=== PATIENT | female | born 1945 | race Caucasian/White ===

== ENCOUNTER 2020-04-22 11:15 | Emergency (ER) | payer MEDICARE, SELFPAY ==
--- NOTE | ~2020-04-22 | CT_ITS ---
EXAMINATION: CT facial & cervical spine wo DATE: 04/22/2020 14:04 INDICATION: Facial and neck pain after fall TECHNIQUE: Computed tomography (CT) of the maxillofacial region and cervical spine was performed with out intravenous contrast. The dose-length product (DLP) was 493.00 mGy-cm. Automated exposure control and iterative reconstruction technique were employed. COMPARISON: None FINDINGS: MAXILLOFACIAL CT: There is no facial fracture. The orbits are normal. The soft tissues are unremarkable. The paranasal sinuses are well-aerated. CERVICAL SPINE CT: There is no fracture. The odontoid is intact. There is 1 mm of anterolisthesis of C4 on C5 and C5 on C6. Mild loss of intervertebral disc space height is seen at C6-7. The vertebral body heights are nor mal. 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 The prevertebral soft tis sues are normal. IMPRESSION: 1. No facial fracture. 2. Mild cervical spondylosis. Reviewed, dictated and finalized at location A.
--- NOTE | ~2020-04-22 | XR_ITS ---
EXAMINATION: XR chest 1V INDICATION: Pain after fall TECHNIQUE: AP COMPARISON: None available FINDINGS: The lungs are free of acute opacities. There is no pleural effusion or pneumothorax. The ca rdiomediastinal silhouette is normal. The visualized bones and soft tissues are unremarkable. IMPRESSION: 1. No acute cardiopulmonary abnormality. Reviewed, dictated and finalized at location A.
--- NOTE | ~2020-04-22 | XR_ITS ---
EXAMINATION: XR hip RT 2V w AP pelvis INDICATION: Right hip pain TECHNIQUE: AP view of the pelvis and two views of the right hip are obtained. COMPARISON: None available FINDINGS: Bone alignment is normal. There is no fracture. Mild bilateral hip osteoarthritis is presen t. There is moderate to severe spondylosis of the partially imaged lumbar spine. IMPRESSION: 1. No acute osseous abnormality. Reviewed, dictated and finalized at location A.
--- NOTE | ~2020-04-22 | CT_ITS ---
EXAMINATION: CT brain wo con INDICATION: Head injury COMPARISON: None TECHNIQUE: Standard unenhanced head CT. The dose-length product (DLP) was 605.33 mGy-cm. The mA was a djusted according to patient size. Iterative reconstruction technique was employed. FINDINGS: There is no acute intraparenchymal hemorrhage. No evidence of mass lesion. No evidence of a cute infarction. There is mild periventricular and subcortical hypodensity probably related to small vessel ischemic disease. There is mild prominence of the sulci and ventricles related to cerebral atr ophy. Intracranial calcified cerebral atherosclerosis is noted. There are no extra-axial collections. There is no mass effect or midline shift. The orbits and soft tissues are unremarkable. The visuali zed sinuses and mastoid air cells are well aerated. IMPRESSION: 1. No acute intracranial abnormality. 2. Age related findings. Reviewed, dictated and finalized at location A.
[2020-04-22 11:10] VITALS: BP 156/74; PULSE 77; RESP 18; TEMP 36.9; O2SAT 96
--- NOTE | 2020-04-22 12:33 | ECG_ITS ---
Measurements Intervals [place] Rate: 70 P: 34 MO: 204 QRS: 8 QRSD: 86 T: 1 QT: 371 QTc: 401 Interpretive Statements SINUS RHYTHM WITH MARKED SINUS ARRHYTHMIA BORDERLINE AV CONDUCTION DELAY BORDERLINE T WAVE ABNORMALITY- INFERIOR LEADS BASELINE ARTIFACT- I, III, AVL BORDERLINE ECG Electronically Signed On 04-22-2020 16:40:02 CDT by Zachary Liriano D.O.
[2020-04-22 12:46] VITALS: BP 135/67; PULSE 76; RESP 22; O2SAT 97
--- NOTE | 2020-04-22 12:57 | ED.GENADULT ---
HPI - General Adult General Chief complaint: Fall Stated complaint: FALL Time Seen by Provider: 04/22/20 12:12 History of Present Illness HPI narrative: Patient is a 74 y/o female complaining of falling down about 14 steps at her sister's place. She states that she missed a step prior to falling. This occurred 1-2 hours ago. She has some aching headache on right side of her head. She rates her pain as 4/10. She admits hitting her head, but she did not pass out. She also has some neck pain and right hip pain. She sustained laceration to left leg and multiple abrasions. She states that she is up to date on Tetanus shot and her last one was approximately 1 year ago. Related Data Home Medications Medication Instructions Recorded Confirmed Unable to Obtain Home Medications 04/22/20 04/22/20 Allergies Allergy/AdvReac Type Severity Reaction Status Date / Time No Known Allergies Allergy Verified 04/22/20 11:28 Review of Systems Constitutional: Constitutional: Denies chills, Denies fever(s), Reports headache(s) and Denies weakness Eyes: Eyes: Denies blurry vision ENT: Reports headache(s) and Reports neck pain Cardiovascular: Cardiovascular: Denies chest pain and Denies dyspnea Respiratory: Respiratory: Denies cough and Denies dyspnea Gastrointestinal: Gastrointestinal: Denies abdominal pain, Denies diarrhea, Denies nausea and Denies vomiting Genitourinary: Genitourinary: Denies hematuria and Denies dysuria Musculoskeletal: Musculoskeletal: Denies back pain and Reports neck pain Integumentary/Breasts: Skin/Breast: Reports as per HPI and Reports wounds (left leg laceration) Neurologic: Reports headache(s) and Denies weakness [facility] Social History Social History Gender identity (if verbalized by the patient): Female Exam Const: General: no acute distress and well developed Orientation/consciousness: oriented to person, oriented to place, oriented to time and patient oriented x3 HENMT: Head: normocephalic Ears: external ears normal General nose exam: Normal external nose present Eyes: General: appearance normal, both eyes and all related structures Conjunctivae: conjunctivae normal Neck: Neck: normal visual inspection and other (C-colar in place) Chest: Chest palpation & inspection: normal inspection of the chest and no tenderness Resp: Effort & Inspection: normal respiratory effort Auscultation: clear to auscultation bilaterally Cardio: Rate: regular rate Rhythm: regular rhythm GI: GI Palp: No abdominal tenderness and Yes Soft to palpation Skin: General skin exam: normal color and turgor normal Trauma: abrasion (left index finger, left arm) and laceration (12 cm laceration left lower leg) Neuro: General: oriented to person, oriented to place, oriented to time and patient oriented x3 Cranial nerves: Yes CN's II-XII intact bilaterally Cognition (Neuro): normal cognition Speech: normal speech Motor exam (neuro): 5/5 motor strength present throughout Sensory Exam: normal sensation Coordination: [id number] test normal and [id number] test normal Extrem: General: normal to inspection, full ROM and no pedal edema Psych: Appearance: grossly normal Mental Status: mental status grossly normal Affect: normal affect Course Vital Signs Vital signs: Vital Signs Temperature 36.9 C 04/22/20 11:10 Pulse Rate 77 04/22/20 11:10 Respiratory Rate 18 04/22/20 11:10 Blood Pressure 156/74 H 04/22/20 11:10 Pulse Oximetry 96 04/22/20 11:10 Temperature 36.9 C 04/22/20 11:10 Pulse Rate 76 04/22/20 12:46 Respiratory Rate 22 H 04/22/20 12:46 Blood Pressure 135/67 04/22/20 12:46 Pulse Oximetry 97 04/22/20 12:46 Procedures Laceration Laceration 1: Date: 04/22/20 Site: lower extremity (left lower leg) Side (If applicable): left Size (cm): 12 Description: linear Local Anesthetic: jeremy
[2020-04-22 13:22] LABS: Basophils Absolute Auto 0.1 K/mm3 (0.0-0.1); Basophils Percent Auto 0.5 % (0.2-1.2); Eosinophils Absolute Auto 0.3 K/mm3 (0-0.3); Eosinophils Percent Auto 2.8 % (0-4.4); Hematocrit 41.5 % (37.0-47.0); Hemoglobin 13.4 g/dL (12.0-15.0); Immature Granulocyte Absolute 0.08 K/mm3 (0.00-0.031); Immature Granulocyte Percent A 0.8 % (0-0.5); Lymphocytes Absolute Auto 2.26 K/mm3 (0.9-3.2); Lymphocytes Percent Auto 22.8 % (18.3-44.2); Mean Corpuscular HGB Conc 32.3 g/dl (32-36); Mean Corpuscular Hemoglobin 35.4 pg (26-34); Mean Corpuscular Volume 109.5 fl (80-100); Mean Platelet Volume 10.9 fl (7.4-10.4); Monocytes Absolute Auto 0.9 K/mm3 (0.1-0.6); Monocytes Percent Auto 8.7 % (2.6-8.5); Neutrophils Absolute Auto 6.4 K/mm3 (1.3-6.7); Neutrophils Percent Auto 64.4 % (45.5-73.1); Platelet Count Result 207 k/mm3 (150-375); Red Blood Count 3.79 M/mm3 (4.2-5.4); Red Cell Distribution Width 14.2 % (11.5-14.5); White Blood Count 9.9 K/mm3 (4.5-10.0)
[2020-04-22 13:36] LABS: Alanine Aminotransferase 28 U/L (4-35); Albumin Level 3.9 g/dL (3.5-5.1); Alkaline Phosphatase 96 U/L (38-126); Aspartate Amino Transferase 29 U/L (14-36); Bilirubin,Total 0.3 mg/dL (0.2-1.3); Blood Urea Nitrogen 17 mg/dL (7-17); Calcium 9.1 mg/dL (8.4-10.2); Carbon Dioxide 26 mmol/L (22-30); Chloride 106 mmol/L (98-107); Estimated CRCL calculation 82 ml/min; Estimated Glomerular Filt Rate > 60; Glucose 107 mg/dL (65-105); Potassium 4.2 mmol/L (3.4-5.0); Sodium 137 mmol/L (137-145)
[2020-04-22] MEDS: IBUPROFEN 400 MG TABLET 800 MG PO (14:57)
[2020-04-22 15:52] VITALS: BP 131/74; PULSE 88; RESP 20; O2SAT 98
== END 2020-04-22 15:53 | disposition home or self-care (01) ==
PROVIDERS: Emergency Provider Emergency Medicine; PCP Family Medicine
DX: S00.83XA Contusion of other part of head, initial encounter (principal); S81.812A Laceration without foreign body, left lower leg, initial encounter; S60.411A Abrasion of left index finger, initial encounter; S40.812A Abrasion of left upper arm, initial encounter; W10.9XXA Fall (on) (from) unspecified stairs and steps, initial encounter; R94.31 Abnormal electrocardiogram [ECG] [EKG]
CPT/HCPCS: 12034; 36415; 70450; 70486; 71045; 72125; 73502; 80053; 85025; 93005; 99284; A9270

== ENCOUNTER 2020-05-02 13:15 | Outpatient (CLI) | payer MEDICARE, SELFPAY ==
--- NOTE | ~2020-05-02 | DEXA_ITS ---
BMD(1) Young-Adult(2) Age-Matched(3) Region (g/cm2) T-score Z-score WHO Classification L1 1.277 1.1 1.7 Normal L2 1.440 1.9 2.5 Normal L3 1.546 2.6 3.2 Normal L4 1.361 1.1 1.7 Normal L1-L4 (L2) 1.388 1.6 2.2 Normal Trend: L1-L4 (L2) Change vs Change vs Measured Age BMD(1) Baseline Previous Date ([age]) (g/cm2) (%) (%) 05[birth year]02/2020 [age] 1.388 baseline - 1 - Statistically 68% of repeat scans fall within 1SD (+- 0.010 g/cm2 for AP Spine L1-L4 (L2)) 2 - [place] (Combined [place] (ages 20-30) / [place] (ages 20-40)) AP Spine Reference Population (v112) 3 - Matched for Age, Weight (females 25-100 kg), Ethnic 11 - World Health Organization - Definition of Osteoporosis and Osteopenia for Women: Normal = T-score at or above -1.0 SD; Osteopenia = T-score between -1.0 and -2.5 SD; Osteoporosis = T-score at or below -2.5 SD; (WHO definitions only apply when a young healthy Women reference database is used to determine T-scores.) Printed: 05/02/2020 2:00:38 PM (13.60)76:3.00:22.22:27.0 0.00:14.88 0.60x1.05 33.2:%Fat=45.8% 0.00:0.00 0.00:0.00 Filename: [id number] Scan Mode: Thick;OneScan 83.0 uGy GoComm [id number] BMD(1) Young-Adult(2,7) Age-Matched(3) Region (g/cm2) T-score Z-score WHO Classification Neck Left 1.035 0.0 1.1 Normal Right 1.092 0.4 1.5 Normal Mean 1.064 0.2 1.3 Normal Difference 0.057 0.4 0.4 - Total Left 1.176 1.3 2.2 Normal Right 1.196 1.5 2.4 Normal Mean 1.186 1.4 2.3 Normal Difference 0.021 0.2 0.2 - Hip [place] Length Comparison (mm) (Right = 100.9 mm) (Mean = 105.9 mm) (Left = 99.4 mm) Trend: Total Mean Change vs Change vs Measured Age BMD(1) Baseline Previous Date (years) (g/cm2) (%) (%) 05/02/2020 74.8 1.186 baseline - 1 - Statistically 68% of repeat scans fall within 1SD (+- 0.010 g/cm2 for DualFemur Total) 2 - [place] (Combined [place] (ages 20-30) / [place] (ages 20-40)) Femur Reference Population (v112) 3 - Matched for Age, Weight (females 25-100 kg), Ethnic 7 - DualFemur Total T-score difference is 0.2. Asymmetry is None. 11 - World Health Organization - Definition of Osteoporosis and Osteopenia for Women: Normal = T-score at or above -1.0 SD; Osteopenia = T-score between -1.0 and -2.5 SD; Osteoporosis = T-score at or below -2.5 SD; (WHO definitions only apply when a young healthy Women reference database is used to determine T-scores.) Printed: 05/02/2020 2:00:39 PM (13.60); Filename: [id number]; Right Femur; 30.3:%Fat=48.7%; Neck Angle (deg)= 69; Scan Mode: Thick 83.0 uGy; Left Femur; 29.7:%Fat=48.2%; Neck Angle (deg)= 72; Scan Mode: Thick 83.0 uGy GoComm [id number] Dear Rodrigo Farrar, Your patient Annalee Camarena completed a BMD test on 05/02/2020 using the GoComm DXA System (analysis version: 13.60) manufactured by [facility]. The following summarizes the results of our evaluation. PATIENT BIOGRAPHICAL: Name: Annalee Camarena Date: 1945 Height: 63.0 in. Gender: Female
== END 2020-05-02 13:16 | disposition home or self-care (01) ==
LOC: CHSIMG 13:17
PROVIDERS: PCP Family Medicine; Visit Provider Family Medicine
DX: Z78.0 Asymptomatic menopausal state (principal)
CPT/HCPCS: 77080

== ENCOUNTER 2024-12-06 12:34 | Outpatient (CLI) | payer MEDICARE, SELFPAY ==
--- NOTE | ~2024-12-06 | DEXA_ITS ---
Bone Density Report Name: GRISELDA PARKINSON Age: 79 Sex: Female Ethnicity: White Date of : 1945 Indication: postmenopausal; screening for osteoporosis; asthma or emphysema; hysterectomy; Referring Provider: Kathy Mitchell Study: Bone densitometry was performed. Exam Date: December 06, 2024 Accession number: [id number] Bone Density: Region BMD T-score Z-score Classification AP Spine(L1-L4) 1.289 2.2 4.9 Normal Femoral Neck (Left) 0.883 0.3 2.6 Normal Total Hip (Left) 1.076 1.1 3.1 Normal World Health Organization criteria for BMD impression classify patients as: Normal (T-score at or above -1.0), Osteopenia (T-score between -1.0 and -2.5), or Osteoporosis (T-score at or below -2.5). Clinical Information Provided by Patient: Has used the following medications: Vitamin D, Calcium, Celebrex Has the following medical conditions: Asthma or Emphysema, Hysterectomy Patient maximum height was 63.5 Menopause Age: 50 No regular weight bearing exercise Drinks caffeinated beverages Onset of menses at age 13 Number of children 2 Impression: The patient has normal bone mass. Discussion: LOW RISK OF FRACTURE; BONE DENSITY IS WELL ABOVE THE MINIMUM DESIRABLE LEVEL AND ABOVE AVERAGE FOR AGE AND SEX AT ALL SKELETAL SITES TESTED. This person's bone density is above expected limits for age and sex. This is rarely clinically significant, but should be pursued if there are significant musculoskeletal complaints. The patient should follow a healthful lifestyle (good nutrition with adequate calcium and vitamin D, and appropriate weight-bearing exercise). Follow-Up: Consider repeating this study in 5 years or sooner if there is some new clinical indication. Reported by: AURA on 12/06/2024 1:05:00 PM. Reviewed, dictated and finalized at location A.
--- OUTSIDE RECORDS SUMMARY | 2024-12-06 13:10 | XMS_ITS | Data Portability ---
Author Organization ANNIE - Robert Jonas- O-Zhaira Address [facility] [place] [address] [address] Care Team Providers Care Truck Rental Clerk Name Role Phone JAYSON ELIAS Primary Care Provider Assessment Encounter Date Assessment Date Assessment LastModified by Organization Details LastModified Time 09/16/2022 09/16/2022 Pain diary given. [email or web address] Not availa ble 09/16/2022 10:44:17 02/26/2023 02/26/2023 Assessment left wrist pain secondary osteoarthritis Plan after discussing risk of injection such as infection she requested and received a dexamethasone lidocaine injection left thumb CMC joint she tolerated this well. She will continue activity as tolerated follow-up as needed. I offered a cool comfort splint but she was not interested Not available 02/26/2023 12:31:03 Plan of Treatment Reminders Order Date Submit Date Provider Last Modified By Organization Details Last Modified Time Details Appointments None recorded. Lab None recorded. Referral None recorded. Procedures carpometaca rpal injection (PROC) - 02.25.22 DR BLACK LEFT THUMB CMC INJ 2021 022 [email or web address] Not available 09:11:22 Surgeries None recorded. Imaging XR, knee, 3 view 2021 022 [email or web address] [facility] (Image Order), [facility] [place], [address], 15:22:06 XR, wrist, 3 or more view 2022 023 [email or web address] [facility] (Image Order), [facility] [place], [address], 3 13:06:24 Medication Orders tramadol 50 mg tablet 2021 022 RONAN [id number], [address] [place], [id number], 13:02:17 dexamethaso ne sodium phosphate 10 mg/mL injection solution 2022 023 [id number], [address] [place], [id number], 12:47:33 Patient TargetsNo targets recorded. Patient Instructions Encounter Date Encounter Id Patient Instructions Last Modified By Organization Details Last Modified Time 02/11/2022 [id number] osteoarthritis: care instructions Not available 02/11/2022 20:41:18 02/25/2022 [id number] osteoarthritis: care instructions Not available 02/26/2022 09:04:24 02/26/2023 [id number] The patient's diagnosis was discussed using layman's terms. The patient had the opportunity to ask questions and all of these questions were answered to the best of my ability. We discussed treatment options. The patient has been informed that if any questions arise after today, they are to call the office for another appointment, or leave a message for us to return a call. This note was created using voice recognition software and inadvertent typographical errors, word omissions or word substitutions may exist. Occasionally, this may alter the intended meaning of the note. For example, is related can be substituted for isn't related by the software. Not available 02/26/2023 12:31:06 Reason for Referral None Reported. Results Created Date Observation Date Name Description Value Unit Range Abnormal Flag Note LastModifiedBy Organization Detail LastModifiedTime 01/22/2001/21/2022 XR, femur No observ ation record ed. INTERFACE [facility] (Image Order) [address] [place], [address], 01/21/2022 12:59:50 01/31/20 22 01/30/2022 MRI left hip No observ ation record ed. INTERFACE [facility] (Image Order) [address] , [place], [place], [address], 01/30/2022 14:53:03 02/01/20 22 01/30/2022 [facility]-rep ort MR hip left w/o cm EXAMIN ATION: MRI LEFT HIP WITHOU T CONTRA ST, 022 HISTOR Y: stiffn ess of joint of left hip COMPAR JAZMIN: No prior imagin g availa ble for direct compar jazmin. 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 No acute fractu re. Sacroi liac joints : Mild bilate ral osteoa rthrit is. No eviden ce of effusi on. Pubic symphy sis: Mild osteoa rthrit is with small joint effusi on. Hips: Modera te volume fluid surrou nding the right total hip arthro plasty likely repres ents expect ed degree of postop erativ e fluid, althou gh techni syl steril ity indete rminat e by imagin g. If there is concer n for infect ion, arthro centes is with labora tory analys is could furthe r evalua te. Modera te left hip osteoa rthrit is with a small left hip joint effusi on. Left acetab ular labrum : Degene rative frayin g of the left acetab ular labrum withou t discre te tear or. Labral cyst on this nonart hrogra m exam. Examin ation not tailor ed to evalua te the contra latera l acetab ular labrum . Hamstr ings origin s: Left greate r than right partia l tears with modera te tendin osis. Gluteu s minimu s and gluteu s medius tendon s: Partia l tear of left gluteu s minimu s and gluteu s medius with modera te tendin osis and mild trocha nteric bursit is. Limite d evalua tion on the right. Iliops oas tendon s: Modera te tendin osis and bursit is of the left iliops oas tendon . Suspec t partia l tear at the insert ion on the lesser trocha nter. Limite d evalua tion of the right. Soft tissue s: Coloni c divert iculos is. No eviden ce of intrap elvic free fluid. IMPRES YESENIA: 1. Modera te tendin osis and bursit is of the left iliops oas tendon . Suspec t partia l tear at the insert ion on the lesser trocha nter. 2. Partia l tear of left gluteu s minimu s and gluteu s medius with modera te tendin osis and mild trocha nteric bursit is. 3. Left greate r than right partia l tears of the hamstr ings origin s with modera te tendin osis. 4. Modera te left hip osteoa rthrit is with a small left hip joint effusi on and degene rative frayin g of the left acetab ular labrum . 5. No acute fractu re. Electr onical ly Signed By: Robert Cobian at: 022 12:48 EDT [email or web address] [employer] [address], [place], [address], 02/12/2022 10:06:49 02/27/20 22 02/11/2022 unk No observ ation record ed. INTERFACE [facility] (Image Order) [facility] [place], [address], 02/26/2022 06:06:03 02/27/20 22 02/25/2022 unk No observ ation record ed. INTERFACE [facility] [place], [address], 02/26/2022 06:28:58 09/16/20 22 09/16/2022 knee lt No observ ation record ed. INTERFACE [facility] [place], [address], 09/16/2022 11:58:46 Result Notes None recorded. Problems Name Problem SNOMED Code Status Onset Date Resolution Date Notes Provider Name and Address Organization Details Recorded Time Pain in both feet 494162078396 30154 Active 2017 Celestina Landers null, [place] - [facility] 8 14:32:16 Osteoarth ritis of midfoot 167190827 Active 2017 Son Camp null, [place] - [facility] 8 15:39:38 Pain in right hip joint 939950591341 102 Active 2020 Laila Esqueda null, [place] - [facility] 1 18:52:51 Hip pain 15905905 Active 2020 Ruma Flores null, [place] - [facility] 1 09:42:22 Body mass index 40+ - severely obese 498542852 Active 2020 Jose Luis Mullne MD [address] [place], [address], [place] - [facility] 1 10:34:20 Acquired unequal limb length 135256612954 100 Active 2020 Jose Luis Mullen MD [address] [facility] [place], [address], [place] [facility] 1 10:34:22 Osteoarth ritis of right hip joint 249213688128 107 Active 2020 Jose Luis Mullen MD [address] [facility] [place], [address], [place] - [facility] 1 10:34:24 Osteonecr osis of head of femur 780804071 Active 2020 Jose Luis Mullen MD [address] [place], [address], [place] - [facility] 1 10:34:29 Lumbar spondylos is 269809521 Active 2020 Jose Luis Mullen MD [address] [facility] [place], [address], [place] [facility] 1 10:42:25 Neck pain 09392408 Active 2020 Gila Bray null, [place] - [facility] 1 15:05:54 Pain of left thigh 338079728901 105 Active 2021 Trudi Landry null, [place] - [facility] 2 12:44:50 Pain of left hip joint 255985681315 100 Active 2021 Elias Nguyen null, [place] - [facility] 2 13:49:26 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 82497346 Active 2021 Kishore Horan null, [place] - [facility] 2 15:34:12 Osteoarth ritis of left hip joint 445169911977 108 Active 2021 Kishore Horan null, [place] - [facility] 2 15:34:13 Pain of left wrist 536085656090 102 Active 2021 Son Black MD [address] [facility] [place], [address], [place] [facility] 2 08:17:20 Pain of left knee region 332617072116 109 Active 2021 Trudi Landry null, [place] - [facility] 2 11:50:03 Pes anserinus tendiniti s 77047391 Active 2021 DAVID Booth [address] [place], [address], [place] [facility] 2 15:27:54 Pain in left thumb 291304093576 9100 Active 2022 Tabitha Garduno null, [place] - [facility] 3 11:34:09 Severe obesity 628648127159 04 Active 2022 Joshua Bonilla MD [address] [place], [address], [place] [facility] 3 12:26:42 Osteoarth ritis of first carpometa carpal joint of left hand 735301395759 103 Active 2022 Joshua Bonilla MD [address] [place], [address], [place] [facility] 3 12:26:59 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 Procedures Surgical History Date Name Laterality Status Provider Name and Address Organization Details Recorded Time 12/11/19 62286: Therapeutic Exercise cancelled Jay Yates, DIRECTOR OF TEACHER EDUCATION [address] [place], [address], [place] [facility] 12/10/2021 08:16:16 12/11/19 22 86141: Therapeutic Activities cancelled Jay Yates, DIRECTOR OF TEACHER EDUCATION [address] [place], [address], [place] [facility] 12/10/2021 08:16:16 12/09/19 53466: Therapeutic Exercise completed Jay Yates, DIRECTOR OF TEACHER EDUCATION [address] [place], [address], [place] [facility] 12/06/2021 08:09:09 12/09/19 22 85464: Therapeutic Activities completed Jay Yates PTA [address] [place], [address], [place] [facility] 12/06/2021 08:09:09 12/06/19 39955: Therapeutic Exercise completed Jay Yates PTA [address] [place], [address], [place] - [facility] 12/05/2021 09:05:56 12/06/19 94601: Therapeutic Activities completed Jay Yates PTA [address] [place], [address], [place] [facility] 12/05/2021 09:05:56 12/04/19 80100: Therapeutic Exercise completed C-HornbyD_PT A [address] [place], [address], [place] [facility] 11/30/2021 21:40:04 12/04/19 22 21215: Gait Training completed C-HornbyD_PT A [address] [place], [address], [place] [facility] 12/05/2021 07:49:24 12/04/19 22 26036: Manual Therapy completed C-HornbyD_PT A [address] [place], [address], [place] [facility] 11/30/2021 21:40:04 12/04/19 22 11205: Therapeutic Activities completed C-HornbyD_PT A [address] [place], [address], [place] [facility] 11/30/2021 21:40:04 11/29/19 22 64889: Therapeutic Exercise completed C-HornbyD_PT A [address] [place], [address], [place] [facility] 11/29/2021 16:09:21 11/29/19 14243: Manual Therapy completed C-HornbyD_PT A [address] [place], [address], [place] [facility] 11/30/2021 20:20:16 11/29/19 91688: Therapeutic Activities completed C-HornbyD_PT A [address] [place], [address], [place] - [facility] 11/29/2021 16:09:21 11/27/19 93678: Therapeutic Exercise completed Jay Yates, JAZZ [address] [place], [address], [place] - [facility] 11/27/2021 08:29:37 11/27/19 65357: Therapeutic Activities completed Jay Yates, JAZZ [address] [place], [address], [place] - [facility] 11/27/2021 08:29:37 11/22/19 22 47068: Therapeutic Exercise completed Jay Yates, DIRECTOR OF TEACHER EDUCATION [address] [place], [address], [place] [facility] 11/21/2021 08:19:07 11/22/19 73825: Therapeutic Activities completed Jay Yates, DIRECTOR OF TEACHER EDUCATION [address] [place], [address], [place] [facility] 11/21/2021 08:19:07 11/20/19 22 01513: Therapeutic Exercise completed Jay Yates, JAZZ [address] [place], [address], [place] [facility] 11/19/2021 08:53:21 11/20/19 22 44656: Therapeutic Activities completed Jay Yates PTA [address] [place], [address], [place] [facility] 11/19/2021 08:53:21 11/18/19 22 73090: Therapeutic Exercise completed Jay Yates PTA [address] [place], [address], [place] - [facility] 11/15/2021 13:57:10 11/18/19 22 60930: Therapeutic Activities completed Jay Yates PTA [address] [place], [address], [place] [facility] 11/15/2021 13:57:10 11/14/19 22 79141: Therapeutic Exercise completed SHARYN Mistry [address] [place], [address], [place] - [facility] 11/14/2021 11:39:11 11/14/19 22 27437: Neuromuscular Re-Education completed SHARYN Mistry [address] [place], [address], [place] [facility] 11/15/2021 08:05:23 11/14/19 22 28321: Therapeutic Activities completed SHARYN Mistry [address] [place], [address], [facility] 11/14/2021 11:39:11 11/12/19 22 61580: Therapeutic Exercise completed Jay Yates PTA [address] [place], [address], [place] [facility] 11/12/2021 11:58:37 11/12/19 22 98369: Therapeutic Activities completed Jay Yates PTA [address] [place], [address], [place] [facility] 11/12/2021 11:58:34 11/07/20 21 90808: Therapeutic Exercise completed Jolie Song [place] - [facility] 11/07/2021 13:22:01 12/30/20 21 67044: Gait Training completed [facility]ie [facility] 11/07/2021 13:22:01 11/07/20 78994: [facility] 11/07/2021 13:22:01 11/05/20 20234: Therapeutic Exercise completed Jolie [facility] 11/05/2021 09:44:10 11/05/20 67685: Gait Training completed Jolie [facility] 11/05/2021 13:13:47 11/05/20 33769: Therapeutic Activities completed Jolie [facility] 11/05/2021 09:44:10 10/30/20 85588: Therapeutic Exercise completed SHARYN Mistry [address] [facility] [place], [address], [facility] 10/31/2021 07:51:59 10/30/20 21062: Therapeutic Activities completed SHARYN Mistry [address] [facility] [place], [address], [facility] 10/31/2021 07:51:59 10/09/20 61649: Therapeutic Exercise completed SHARYN Mistry [address] [facility] [place], [address] [place] [address], [facility] 10/09/2021 13:23:10 10/09/20 71169: Therapeutic Activities completed SHARYN Mistry [address] [facility] [place], [address], [facility] 10/09/2021 13:23:10 10/08/20 27012: Therapeutic Exercise completed Jolie [facility] 10/08/2021 13:26:31 10/08/20 03536: Manual Therapy completed Jolie [facility] 10/08/2021 14:56:37 10/08/20 96238: Therapeutic Activities completed Jolie [facility] 10/08/2021 13:26:31 10/07/20 25497: Therapeutic Exercise completed Jay Yates PTA [address] [place], [address], [place] [facility] 10/07/2021 15:15:32 10/07/20 21 56470: Therapeutic Activities completed Jay Yates PTA [address] [place], [address], [facility] [place] [facility] 10/07/2021 15:15:35 09/30/20 21 79496: Therapeutic Exercise cancelled SHARYN Mistry [address] [place], [address], [facility] [place] [facility] 09/26/2021 15:34:11 09/23/20 02492 PT eval ? low complexity completed SHARYN Mistry [address] [place], [address], [facility] 09/23/2021 15:44:35 09/23/20 21 02042: Therapeutic Exercise completed SHARYN Mistry [address] [place], [address], [facility] 09/25/2021 10:40:59 09/23/20 21 68118: Therapeutic Activities completed SHARYN Mistry [address] [place], [address], [facility] 09/25/2021 10:41:30 09/16/20 21 [id number]: Gait Training completed SHARYN Mistry [address] [place], [address], [facility] 09/16/2021 14:15:20 09/16/20 21 50246 PT eval ? low complexity completed SHARYN Mistry [address] [place], [address], [facility] 09/16/2021 12:11:28 09/16/20 21 93456: Therapeutic Activities completed SHARYN Mistry [address] [place], [address], [facility] 09/16/2021 14:16:11 06/09/20 17 Most Recent Mammogram completed Celestina Bobak [place] - [facility] 06/02/2018 14:46:09 05/09/20 17 Most Recent Bone Density completed Celestina Landers [place] - [facility] 06/02/2018 14:46:04 Imaging Results Imaging Date Name Status LastModified by Organiz ation Details LastModified Time 01/21/2022 XR, femur completed INTERFACE [facility] (I mage Order) [facility] [place], [address], 01/21/2022 12:59:50 01/30/2022 MRI left hip completed INTERFACE [facility] (Image Order) [facility] [place], [address], 01/30/2022 14:53:03 01/30/2022 [facility] -report MR hip left w/o cm completed [email or web address] [employer] [address], [place], [address], 02/12/2022 10:06:49 02/11/2022 unk completed INTERFACE [facility] (I mage Order) [facility] [place], [address], 02/26/2022 06:06:03 02/25/2022 unk completed INTERFACE [facility] (I mage Order) [facility] [place], [address], 02/26/2022 06:28:58 09/16/2022 knee lt completed INTERFACE [facility] (I m[facility] Order) [facility] [place], [address], 09/16/2022 11:58:46 Procedure Notes None recorded. Medical Equipment None Reported. Allergies No known drug allergies Medications Name Sig Start Date Stop Date Status Note LastModified by Organization Details LastModified Time Prescript ion - Renewal 11/21 completed compound ing RX Not Available Not Available Not Available Prescript ion - New 11/21 completed compound ing RX Not Available Not Available Not Available latanopro st 0.005 % eye drops INSTILL 1 DROP IN BOTH EYES AT BEDTIME 11/05 completed Not Available Not Available Not Available metformin 500 mg tablet Take 1 tablet twice a day by oral route. 09/16 completed Not Available Not Available Not Available prednison e 10 mg tablet 11/05 completed Not Available Not Available Not Available clindamyc in HCl 300 mg capsule TK 1 C PO Q 8 H 11/19 completed Not Available Not Available Not Available atorvasta tin 10 mg tablet 1 po qd active Not Available Not Available Not Available azithromy ewelina 250 mg tablet TAKE 2 TABLETS BY MOUTH FOR 1 DAY THEN TAKE 1 TABLET BY MOUTH DAILY FOR 4 DAYS 01/21 completed Not Available Not Available Not Available hydrocodo ne 5 mg-acetam inophen 325 mg tablet Take 1 tablet every 6 hours by oral route as needed for 5 days. 2021 active Not Available Not Available Not Avai lable tretinoin 0.025 % topical cream SOFI EXT AA D 11/21 completed Not Available Not Available Not Available meloxicam 15 mg tablet 1 po qd 07/26 completed Not Available Not Available Not Available phentermi ne 15 mg capsule 07/26 completed Not Available Not Available Not Available potassium chloride ER 10 mEq tablet,ex tended release Take 3 tablets every day by oral route as directed . active Not Available Not Available No t Available phentermi ne 37.5 mg tablet Take 1 tablet every day by oral route as directed for 33 days. 11/21 completed Not Available Not Available Not Available acetamino phen 300 mg-codein e 30 mg tablet TAKE 1 T PO Q 4 HOURS PRN FOR PAIN 01/21 completed Not Available Not Available Not Available valacyclo vir 500 mg tablet take as needed as directed 11/21 completed Not Available Not Available Not Available sulfameth oxazole 800 mg-trimet hoprim 160 mg tablet 06/02 completed Not Available Not Available Not Available peg-elect rolyte solution 420 gram oral solution MIX AND DRINK UTD 11/21 completed Not Available Not Available Not Available tramadol 50 mg tablet Take 1 tablet every 6 hours by oral route as needed for 7 days. 2021 active Not Available Not Available Not Avai lable phentermi ne 30 mg capsule 07/26 completed Not Available Not Available Not Available lidocaine -prilocai ne 2.5 %-2.5 % topical cream 11/21 completed Not Available Not Available Not Available hydrocodo ne 7.5 mg-acetam inophen 325 mg tablet TAKE 1 TABLET BY MOUTH THREE TIMES DAILY 11/05 completed Not Available Not Available Not Available cephalexi n 500 mg capsule TK 1 C PO TID 11/19 completed Not Available Not Available Not Available metoprolo l tartrate 50 mg tablet Take 0.5 tablets twice a day by oral route as directed . 09/23 completed ON HOLD due to low BP after MARCY Not Available Not Available Not Available gabapenti n 300 mg capsule TAKE 2 CAPSULES BY MOUTH TWICE DAILY active Not Available Not Available No t Available diclofena c sodium 75 mg tablet,de layed release TAKE 1 TABLET BY MOUTH TWICE DAILY WITH MEALS 11/21 completed Not Available Not Available Not Available hydroxyzi ne HCl 25 mg tablet TK 1 T PO TID PRN FOR HIVES 11/21 completed Not Available Not Available Not Available mupirocin 2 % topical ointment 11/05 completed Not Available Not Available Not Available furosemid e 20 mg tablet 1 po qd active Not Available Not Available Not Available dexametha sone sodium phosphate 4 mg/mL injection solution Take 4 mg by injectio n route. 11/19 completed Not Available Not Available Not Available Cheratuss in AC 10 mg-100 mg/5 mL oral liquid 05/25 completed Not Available Not Available Not Available levofloxa ewelina 500 mg tablet 11/21 completed Not Available Not Available Not Available methylpre dnisolone 4 mg tablets in a dose pack FOLLOW PACKAGE DIRECTIO NS 11/05 completed Not Available Not Available Not Available albuterol sulfate HFA 90 mcg/actua tion aerosol inhaler INHALE 1 TO 2 PUFFS Q 4 TO 6 HOURS PRN AND UTD 11/21 completed Not Available Not Available Not Available Vitamin D2 1,250 mcg (50,000 unit) capsule Take by oral route as directed for 42 days. active Not Available Not Available No t Available celecoxib 100 mg capsule TAKE 1 CAPSULE BY MOUTH EVERY 12 HOURS WITH MEALS NEEDED FOR PAIN AND INFLAMMA TION active Not Available Not Available No t Available clobetaso l 0.05 % scalp solution 11/21 completed Not Available Not Available Not Available dexametha sone sodium phosphate 10 mg/mL injection solution Take 5 mg by injectio n route. 2022 active Not Available Not Available Not Avai lable amoxicill in 875 mg-potass ium clavulana te 125 mg tablet 11/21 completed Not Available Not Available Not Available oxycodone 5 mg tablet Take by oral route for 4 days. 01/21 completed Not Available Not Available Not Available Multivita min 50 Plus tablet Take 1 tablet every day by oral route as directed . active Not Available Not Available No t Available lutein 20 mg capsule Take 1 capsule every day by oral route. 01/21 completed Not Available Not Available Not Available Nyamyc 100,000 unit/gram topical powder as directed 11/21 completed Not Available Not Available Not Available Boostrix Tdap 2.5 Lf unit-8 mcg-5 Lf/0.5 mL intramusc ular syringe INJET INTRAMUS CULARLY DIRECTED 11/21 completed Not Available Not Available Not Available Vitamin C 1 po daily active Not Available Not Available No t Available vitamin E 1 po daily active Not Available Not Available No t Available zinc 1 po daily 09/16 completed Not Available Not Available Not Available ferrous sulfate take 1 tablet daily as directed active Not Available Not Available No t Available biotin 1 po daily active Not Available Not Available No t Available Acid Controlle r 20 mg tablet Take 1 tablet every day by oral route. active Not Available Not Available No t Available Floranex 1 million cell tablet TK 1 T PO DAILY 11/21 completed Not Available Not Available Not Available Lumigan 0.01 % eye drops active Not Available Not Available No t Available Eye Vitamin and Minerals take 1 tablet everyday as directed active Not Available Not Available No t Available metoprolo l succinate ER 100 mg capsule sprinkle, ext. release 24 hr Take 1 capsule every day by oral route. active Not Available Not Available No t Available Vitals Date Recorded Body height Provider Name an d Address Organization Details Last Updated DateTime 02/11/2022 156.21 cm Perez Vergara [facility] 2021 12:57:28 Date Recorded Body mass index (BMI) Provider Name and Address Organization Details Last Updated DateTime 02/11/2022 47 kg/m2 Perez Vergara [facility] 2021 12:57:36 Date Recorded Body weight Provider Name an d Address Organization Details Last Updated DateTime 02/11/2022 857878.87 g Perez Vergara [place] [facility] 02/11 12:57:37 Date Recorded Respiratory rate Provider Name a nd Address Organization Details Last Updated DateTime 02/11/2022 18 /min Perez [place]ergara [place] [facility] 2021 12:57:52 Date Recorded Heart rate Provider Name an d Address Organization Details Last Updated DateTime 02/11/2022 66 /min Perez Vergara [place] [facility] 2021 13:14:04 Date Recorded Oxygen saturation Oxygen saturation in Arterial blood by Pulse oximetry Provider Name and Address Organization Details Last Updated DateTime 02/11/2022 98 % 98 % Perez Vergara [place] [facility] 02/11/2022 13:14:08 Date Recorded Pain severity - 0-10 verbal numeric rating [Score] - Reported Provider Name and Address Organization Details Last Updated DateTime 02/11/2022 0 Perez Vergara [place] [facility] 2021 13:14:12 Date Recorded Body height Provider Name an d Address Organization Details Last Updated DateTime 02/25/2022 156.21 cm Perez [place]ergara [place] [facility] 2021 12:59:55 Date Recorded Body mass index (BMI) Body weight Provider Name and Address Organization Details Last Updated DateTime 02/25/2022 47 kg/m2 374952.87 g Perez [facility]ergara [place] [facility] 02/25/2022 13:00:06 Date Recorded Respiratory rate Provider Name a nd Address Organization Details Last Updated DateTime 02/25/2022 18 /min Perez Vergara [place] [facility] 2021 13:00:16 Date Recorded Heart rate Provider Name an d Address Organization Details Last Updated DateTime 02/25/2022 76 /min Perez [place]ergara [place] [facility] 2021 13:10:19 Date Recorded Oxygen saturation Oxygen saturation in Arterial blood by Pulse oximetry Provider Name and Address Organization Details Last Updated DateTime 02/25/2022 99 % 99 % Perez Vergara [place] [facility] 02/25/2022 13:10:26 Date Recorded Pain severity - 0-10 verbal numeric rating [Score] - Reported Provider Name and Address Organization Details Last Updated DateTime 02/25/2022 5 Perez [place]ergara [place] [facility] 2021 13:10:31 Date Recorded Body height Provider Name an d Address Organization Details Last Updated DateTime 09/16/2022 156.21 cm Felicity Lopez [place] [facility] 06/2022 10:39:02 Date Recorded Body mass index (BMI) Body weight Provider Name and Address Organization Details Last Updated DateTime 09/16/2022 48.3 kg/m2 490767.02 g Felicity Lopez [place] [facility] 09/16/2022 10:39:08 Date Recorded Heart rate Provider Name an d Address Organization Details Last Updated DateTime 09/16/2022 83 /min Felicity Lopez [place] [facility] 06/2022 10:39:24 Date Recorded Oxygen saturation Oxygen saturation in Arterial blood by Pulse oximetry Provider Name and Address Organization Details Last Updated DateTime 09/16/2022 96 % 96 % Felicity Lopez [place] [facility] 09/16/2022 10:39:29 Date Recorded Respiratory rate Provider Name a nd Address Organization Details Last Updated DateTime 09/16/2022 16 /min Felicityfestus Lopez [place] [facility] 06/2022 10:39:31 Date Recorded Pain severity - 0-10 verbal numeric rating [Score] - Reported Provider Name and Address Organization Details Last Updated DateTime 09/16/2022 7 Felicityfestus Lopez [place] [facility] 06/2022 10:39:38 Date Recorded Body height Provider Name an d Address Organization Details Last Updated DateTime 09/16/2022 156.21 cm Trudi Landry [place] [facility] 2021 11:50:35 Date Recorded Body mass index (BMI) Body weight Provider Name and Address Organization Details Last Updated DateTime 09/16/2022 48.3 kg/m2 838571.02 g Trudi Frantz [place] [facility] 09/16/2022 11:50:39 Date Recorded Pain severity - 0-10 verbal numeric rating [Score] - Reported Provider Name and Address Organization Details Last Updated DateTime 09/16/2022 9 Trudi Landry [place] [facility] 2021 11:51:02 Date Recorded Body height Provider Name an d Address Organization Details Last Updated DateTime 02/26/2023 156.21 cm [facility]a [facility] 02/26 11:33:22 Date Recorded Body mass index (BMI) Body weight Provider Name and Address Organization Details Last Updated DateTime 02/26/2023 48.3 kg/m2 689127.02 g Tabitha [facility] 02/26/2023 11:33:36 Date Recorded Pain severity - 0-10 verbal numeric rating [Score] - Reported Provider Name and Address Organization Details Last Updated DateTime 02/26/2023 9 Tabitha Garduno [place] [facility] 02/26 11:33:42 Date Recorded Systolic blood pressure Diastolic blood pressure Provider Name and Address Organization Details Last Updated DateTime 02/11/2022 124 mm[Hg] 76 mm[Hg] Perez Vergara [place] [facility] 02/11/2022 13:14:01 Date Recorded Systolic blood pressure Diastolic blood pressure Provider Name and Address Organization Details Last Updated DateTime 02/25/2022 134 mm[Hg] 64 mm[Hg] Perez Vergara [place] [facility] 02/25/2022 13:09:19 Date Recorded Systolic blood pressure Diastolic blood pressure Provider Name and Address Organization Details Last Updated DateTime 09/16/2022 144 mm[Hg] 75 mm[Hg] Felicity Lopez [facility] 09/16/2022 10:39:16 Social History Question Answer Notes LastModified by Organizat ion Details LastModified Time Tobacco Smoking Status Never Smoker Celestina Anshul morales, [facility] 06/02/2018 14:41:47 Do You Have An Advance Directive? Yes Information not available 06/02/2018 What Is Your Level Of Alcohol Consumption? Occasional Information not available 06/02/2018 Are You Blind Or Do You Have Difficulty Seeing? No Information not available 07/13/2021 How Much Tobacco Do You Chew? None Information not available 06/02/2018 Are You Currently Employed? No Information not available 06/02/2018 Are You Deaf Or Do You Have Serious Difficulty Hearing? No Information not available 07/13/2021 Diabetes No Information no t available 06/02/2018 Drugs Abused Denies Information not available 06/02/2018 What Is Your Occupation? Retired Teacher Information not available 06/02/2018 Which Of Your Hands Is Dominant? Right Information not available 06/02/2018 Hobbies/Activitie s Gardening, Motorcycles, Travel Information not available 06/02/2018 Legally Blind In One Or Both Eyes? No Information no t available 06/02/2018 Live Alone Or With Others? Alone Information not available 06/02/2018 Do You Have A Medical Power Of Dry Cure Worker? Yes Information not available 06/02/2018 What Was The Date Of Your Most Recent Tobacco Screening? 09/16/2022 [email or web address] Information not available 09/16/2022 How Much Tobacco Do You Smoke? No Information not available 06/02/2018 Do You Use Any Illicit Or Recreational Drugs? No [email or web address] Information not available 01/21/2022 Work Related Injury? No Information not available 06/02/2018 Do You Or Have You Ever Used Any Other Forms Of Tobacco Or Nicotine? No [email or web address] Information not available 09/16/2022 Sex: Unknown Functional Status Question Answer Note LastModified by Organizat ion Details LastModified Time Do you have difficulty walking or climbing stairs? Yes Information not available 07/13/2021 Do you have difficulty doing errands alone? No Information not available 07/13/2021 Are you able to care for yourself? Yes Information not available 06/02/2018 Do you have difficulty dressing or bathing? No Information not available 07/13/2021 What is your exercise level? Occasional Information not available 06/02/2018 Mental Status Question Answer Note LastModified by Organization D etails LastModified Time Do you have difficulty concentrating, remembering or making decisions? No Information no t available 07/13/2021 Family History Nothing Reported. Medical History Condition Response HIV or AIDS N None N MRSA N Previous Oral Steroid(s) Y Sexually Transmitted Disease N COPD N Depression N Blood Clots N Congestive Heart Failure Y Anxiety Disorder N Dizziness N Cancer N Stroke N Stroke/TIA N Rheumatoid Arthritis N Fibromyalgia N Headaches N Kidney Disease N Heart Problems N Migraines N Bleed or Bruise Easily N Lupus/SLE N Weight loss Y Joint Pain N Previous Fracture(s) N Hepatitis/Liver Disease N Bleeding Disorder N Urinary Infection N Tuberculosis N Other: N Asthma Y GERD/Reflux Y Pulmonary Embolis N GI Issues Specify: N Leukemia N Irregular Heartbeat N Mouth Sores N Lung Disease N Fever N Bipolar N Patient reports no significant medical h istory N Pacemaker N Sickle Cell Anemia N Colitis/Stomach Ulcers N Thyroid Problems/Goiter N Chest Pain/Angina N High Cholesterol Y Previous Cortisone Injection(s) Y Loss of Consciousness N Swelling of Legs/Feet/Hands N Osteoarthritis Y Parkinson's Disease N ADD/ADHD N Anemia N Eye Disease/Cataracts/Glaucoma N Poor Circulation N Diabetes N Seizures/Epilepsy N Excessive Thirst N Chronic Back Pain Y Drug dependency/Abuse N Psoriasis N Sleep apnea N Autism N Numbness/Tingling N Hypertension Y Osteoporosis Y Gynecological History Statement/Question Response Have you had a mammogram? Yes Most Recent Mammogram 06/09/2017 Most Recent Bone Density 05/09/2017 Have you had a bone density test? Y Obstetrics History GPAL:G 0 P 0 0 0 0 Immunizations Vaccine Type Date Status Note Provider Nam e and Address Organization Details Recorded Time influenza, unspecified formulation 8 completed [facility] 10:11:46 Pneumococcal Conjugate, unspecified formulation 5 completed [facility] 10/11/2018 10:12:31 Influenza, split virus, quadrivalent, preservative 0 completed Ruma [facility] 11/21/2020 09:54:42 Past Encounters Encounter ID Performer Location Encounter Start Date Encounter Closed Date Diagnosis/Indication Diagnosis SNOMED-CT Code Diagnosis ICD10 Code Diagnosis Note [id number] MD Robert Sales-Fanny[facility]Cele [facility] [address] [place] [address] 05/25/2018 14:33:36 05/31/2018 12:39:43 Foot pain 48697910 M79.671 M79.672 Morbid obesity 453358744 E66.01 Degenerati ve joint disease of ankle AND/OR foot 81170576 M19.308 [id number] Son [place] [address] [address] 06/02/2018 13:56:37 06/07/2018 14:03:39 Pain in both feet 7569178531 6675624 M79.671 M79.672 Pain in right foot 88242 55796 81232 M79.671 Pain in left foot 940364 9329 25055 M79.672 Osteoarthr itis of midfoot 314335103 M19.953 [id number] Son [facility] [address] [place] [address] 07/26/2018 10:59:34 08/04/2018 11:32:24 Pain in both feet 3178238361 9766290 M79.671 M79.672 Osteoarthr itis of midfoot 759293502 M19.895 [id number] Bogdan Flores MD 3[facility] [address] [place] [address] 08/30/2018 09:41:30 09/07/2018 10:52:38 Pain in both feet 3624024376 6643633 M79.671 M79.672 Osteoarthr itis of midfoot 935748045 M19.898 [id number] MD Alyce MorenoOJay ntomari [address] [place] [address] 10/11/2018 09:52:28 10/18/2018 09:10:34 Pain in both feet 7287889753 7053811 M79.671 M79.672 Osteoarthr itis of midfoot 670965868 M19.072 M19.566 [id number] Bogdan Flores MD [facility] [address] [place] [address] 12/06/2018 13:14:40 12/06/2018 14:05:25 Pain in both feet 1650614365 1288176 M79.671 M79.672 Osteoarthr itis of midfoot 350796604 M19.072 M19.071 [id number] Juan Daniel MeadQC-Kingsg huyen [address] [place] [address] 11/19/2020 18:45:19 11/19/2020 19:37:56 Pain in right hip joint 8339335684 74301 M25.551 Osteoarthr itis of right hip joint 6481988067 94048 M16.11 [id number] Gamal Mullen MD [address] [place] [address] 11/21/2020 09:36:12 11/21/2020 11:13:52 Hip pain 43690384 M25.551 Osteonecro sis of head of femur 554201509 M87.851 Osteoarthr itis of right hip joint 2201766502 80134 M16.11 Acquired u nequal limb length 9983019828 25203 M21.70 Body mass index 40+ - severely obese 984591880 Z68.43 Lumbar spondylosis 92575 0009 M47.896 [id number] DAVID Kinney [facility] [address] [address] 07/13/2021 11:47:45 07/13/2021 12:42:15 Neck pain 71100106 M54.2 [id number] Neema Jay LPT [facility] [address] [address] 09/16/2021 11:29:32 09/16/2021 11:50:55 Osteonecrosis of head of femur 493001363 M87.851 Abnormal gait 22750091 R 26.9 [id number] Neema Jay LPT [facility] [address] [address] 09/23/2021 14:56:17 09/23/2021 15:44:19 Osteonecrosis of head of femur 479274471 M87.851 Abnormal gait 24818884 R 26.9 Hip joint prosthesis present 460656988 Z96.641 Muscle weakness 86045171 M62.81 [id number] Jay Yates DIRECTOR OF TEACHER EDUCATION [facility] [address] [address] 10/07/2021 12:51:46 10/07/2021 14:08:21 Osteonecrosis of head of femur 194114177 M87.851 Abnormal gait 19124930 R 26.9 Hip joint prosthesis present 027091393 Z96.641 Muscle weakness 22948914 M62.81 [id number] Jolie Song [facility] [address] [address] 10/08/2021 13:05:12 10/08/2021 16:46:15 Osteonecrosis of head of femur 047448983 M87.851 Abnormal gait 95551032 R 26.9 Hip joint prosthesis present 067112586 Z96.641 Muscle weakness 50923189 M62.81 [id number] SHARYN Mistry [facility] [address] [address] 10/09/2021 10:41:35 10/09/2021 11:23:49 Osteonecrosis of head of femur 169505259 M87.851 Abnormal gait 36317280 R 26.9 Hip joint prosthesis present 908612332 Z96.641 Muscle weakness 62250018 M62.81 [id number] [facility] [address] [place] [address] [place] [address] 11/05/2021 08:53:53 11/05/2021 10:34:20 Neck pain 45704800 M54.2 Clavicle pain 195376199 M25.519 Sternoclav icular joint pain 428561304 R07.89 [id number] SHARYN Mistry [facility] [address] [address] 10/30/2021 15:06:40 10/30/2021 16:00:01 Osteonecrosis of head of femur 883658122 M87.851 Abnormal gait 51100706 R 26.9 Hip joint prosthesis present 128334941 Z96.641 Muscle weakness 19174127 M62.81 [id number] Jolie Song [facility] [address] [address] 11/05/2021 10:55:02 11/05/2021 11:40:21 Osteonecrosis of head of femur 409887825 M87.851 Abnormal gait 03931120 R 26.9 Hip joint prosthesis present 261651694 Z96.641 Muscle weakness 71785094 M62.81 [id number] Neema Jay LPT [facility] [address] [address] 11/07/2021 15:03:09 11/07/2021 16:11:03 Osteonecrosis of head of femur 593611799 M87.851 Abnormal gait 48518505 R 26.9 Hip joint prosthesis present 309957607 Z96.641 Muscle weakness 37405398 M62.81 [id number] Jay Yates DIRECTOR OF TEACHER EDUCATION [facility] [address] [place] [address] 9 11/12/2021 10:40:59 11/12/2021 11:14:55 Osteonecrosis of head of femur 237184847 M87.851 Abnormal gait 86386112 R 26.9 Hip joint prosthesis present 825724039 Z96.641 Muscle weakness 86303265 M62.81 [id number] SHARYN Mistry [facility] [address] [address] 9 11/14/2021 11:28:36 11/14/2021 11:58:54 Osteonecrosis of head of femur 285708768 M87.851 Abnormal gait 24714416 R 26.9 Hip joint prosthesis present 271156045 Z96.641 Muscle weakness 47319196 M62.81 [id number] Jay Yates DIRECTOR OF TEACHER EDUCATION [facility] [address] [place] [address] 9 11/18/2021 13:03:25 11/18/2021 14:39:00 Osteonecrosis of head of femur 599295630 M87.851 Abnormal gait 06984738 R 26.9 Hip joint prosthesis present 248502913 Z96.641 Muscle weakness 97626580 M62.81 [id number] Jay Yates DIRECTOR OF TEACHER EDUCATION [facility] [address] [address] 11/20/2021 12:45:46 11/20/2021 14:32:18 Osteonecrosis of head of femur 454785983 M87.851 Abnormal gait 21167283 R 26.9 Hip joint prosthesis present 603779551 Z96.641 Muscle weakness 46115376 M62.81 [id number] Jay Yates DIRECTOR OF TEACHER EDUCATION [facility] [address] [place] [address] 9 11/22/2021 13:01:28 11/22/2021 13:56:08 Osteonecrosis of head of femur 983468790 M87.851 Abnormal gait 26376333 R 26.9 Hip joint prosthesis present 670980417 Z96.641 Muscle weakness 72406195 M62.81 [id number] Jay Yates DIRECTOR OF TEACHER EDUCATION [facility] [address] [place] [address] 9 11/27/2021 13:57:09 11/27/2021 15:43:02 Osteonecrosis of head of femur 381079794 M87.851 Abnormal gait 51461365 R 26.9 Hip joint prosthesis present 345303330 Z96.641 Muscle weakness 30556606 M62.81 [id number] C-HornbyD_ DIRECTOR OF TEACHER EDUCATION [facility] [address] [address] 11/29/2021 13:24:13 11/29/2021 14:53:59 Osteonecrosis of head of femur 432465382 M87.851 Abnormal gait 28149682 R 26.9 Hip joint prosthesis present 001904746 Z96.641 Muscle weakness 25239897 M62.81 [id number] C-HornbyD_ DIRECTOR OF TEACHER EDUCATION [facility] [address] [place] [address] 12/04/2021 14:01:20 12/04/2021 14:48:29 Osteonecrosis of head of femur 186199722 M87.851 Abnormal gait 69336255 R 26.9 Hip joint prosthesis present 894363953 Z96.641 Muscle weakness 36413271 M62.81 [id number] Jay Yates DIRECTOR OF TEACHER EDUCATION [facility] [address] [place] [address] 12/06/2021 13:05:31 12/06/2021 14:22:09 Osteonecrosis of head of femur 280623432 M87.851 Abnormal gait 75504462 R 26.9 Hip joint prosthesis present 348860335 Z96.641 Muscle weakness 87672197 M62.81 [id number] SHARYN Mistry [facility] [address] [place] [address] 12/09/2021 13:05:07 12/09/2021 14:28:30 Osteonecrosis of head of femur 596694485 M87.851 Abnormal gait 37990762 R 26.9 Hip joint prosthesis present 312330061 Z96.641 Muscle weakness 91290860 M62.81 [id number] SHARYN Mistry [facility] [address] [place] [address] 12/11/2021 07:43:58 12/11/2021 08:40:42 Osteonecrosis of head of femur 798365923 M87.851 Abnormal gait 73504553 R 26.9 Hip joint prosthesis present 169887234 Z96.641 Muscle weakness 88832167 M62.81 [id number] SHARYN Mistry [facility] [address] [place] [address] 12/13/2021 13:04:11 12/13/2021 14:36:19 Osteonecrosis of head of femur 298937520 M87.851 Abnormal gait 32949590 R 26.9 Hip joint prosthesis present 308883374 Z96.641 Muscle weakness 60655804 M62.81 [id number] Kayla-RomaD_ DIRECTOR OF TEACHER EDUCATION [facility] [address] [place] [address] 12/16/2021 13:52:24 12/16/2021 15:44:31 Osteonecrosis of head of femur 723715896 M87.851 Abnormal gait 44485106 R 26.9 Hip joint prosthesis present 015153709 Z96.641 Muscle weakness 15641049 M62.81 [id number] Jay Yates DIRECTOR OF TEACHER EDUCATION [facility] [address] [place] [address] 12/18/2021 12:54:29 12/18/2021 14:09:13 Osteonecrosis of head of femur 679865589 M87.851 Abnormal gait 55598515 R 26.9 Hip joint prosthesis present 610647182 Z96.641 Muscle weakness 23086231 M62.81 [id number] Jay Yates DIRECTOR OF TEACHER EDUCATION [facility] [address] [place] [address] 12/20/2021 09:42:59 12/20/2021 10:56:56 Osteonecrosis of head of femur 364299909 M87.851 Abnormal gait 44749621 R 26.9 Hip joint prosthesis present 428933355 Z96.641 Muscle weakness 64490094 M62.81 [id number] Jay Yates PTA [facility] [address] [place] [address] 12/23/2021 13:45:34 12/23/2021 15:40:50 Osteonecrosis of head of femur 993405609 M87.851 Abnormal gait 91755177 R 26.9 Hip joint prosthesis present 477692681 Z96.641 Muscle weakness 57753149 M62.81 [id number] Jay Yates DIRECTOR OF TEACHER EDUCATION [facility] [address] [address] 12/25/2021 13:03:36 12/25/2021 14:22:12 Osteonecrosis of head of femur 136092241 M87.851 Abnormal gait 21151516 R 26.9 Hip joint prosthesis present 451584859 Z96.641 Muscle weakness 03741916 M62.81 [id number] Jay Yates DIRECTOR OF TEACHER EDUCATION [facility] [address] [address] 12/27/2021 12:59:34 12/27/2021 14:56:06 Osteonecrosis of head of femur 285854093 M87.851 Abnormal gait 28004016 R 26.9 Hip joint prosthesis present 661087579 Z96.641 Muscle weakness 60792066 M62.81 [id number] Jay Yates, DIRECTOR OF TEACHER EDUCATION [facility] [address] [address] 12/30/2021 13:17:48 12/30/2021 14:26:13 Osteonecrosis of head of femur 723990426 M87.851 Abnormal gait 07388289 R 26.9 Hip joint prosthesis present 164568119 Z96.641 Muscle weakness 18642904 M62.81 [id number] Jay Yates, DIRECTOR OF TEACHER EDUCATION [facility] [address] [address] 01/01/2022 12:59:38 01/01/2022 14:33:35 Osteonecrosis of head of femur 331239456 M87.851 Abnormal gait 90352805 R 26.9 Hip joint prosthesis present 619894495 Z96.641 Muscle weakness 11490050 M62.81 [id number] Neema Jay, HANSELT [facility] [address] [address] 01/03/2022 13:02:39 01/03/2022 15:00:25 Osteonecrosis of head of femur 037750806 M87.851 Abnormal gait 95428947 R 26.9 Hip joint prosthesis present 338541450 Z96.641 Muscle weakness 66273127 M62.81 [id number] DAVID Booth [facility] [address] [place] [address] 01/21/2022 12:29:05 01/21/2022 14:48:14 Pain of left thigh 5145683261 02550 M79.652 Fall on sa nm level from slipping, tripping or stumbling 990757340 W01.0XXA Osteoarthr itis of left hip joint 8169539746 99375 M16.12 Stiffness of joint of left hip 7468357929 59453 M25.652 Diagnostic x-ray imaging: Assessment : Left hip and thigh pain status post fall and left hip, suspect femoral neck occult stress fracture, therefore MRIs of the left hip without contrast are medically necessary and warranted at this time.I discussed protected weightbear ing of the left hip until MRI is performed. The patient requested a refill of her medication as she only has 1 tablet left, I feel this is appropriat e. I have advised to try to make her hydrocodon e last. I discussed that should her MRI reveal any occult femoral neck stress fracture, she will be scheduled for follow-up with Dr. Cooper at his next available appointmen t, otherwise if it is negative, to continue progressiv e weightbear ing as tolerated, and we will initiate aggressive physical therapy to focus on gait, balance, endurance, and lower extremity quadricep and hamstring strengthen ing and follow-up with Dr. Cooper in 6-8 weeks. [id number] Jaimie Novka [address] [place] [address] 01/30/2022 13:18:05 01/30/2022 15:01:01 Hip pain 98633088 M25.559 [id number] Luc Cooper MD [facility] [address] [address] 02/05/2022 14:16:00 02/05/2022 15:34:52 Pain of left hip joint 2104398549 22585 M25.552 Osteoarthr itis of left hip joint 6785324680 07525 M16.12 I had a long discussion with Annalee at today's visit about her hip arthritis. Is mild on imaging studies, but I do think this is the source of her pain. I had like to obtain a therapeuti c injection. This will also confirm her diagnosis. Hopefully this gives her excellent relief. I want her to call us if she does not have significan t relief after this injection. She is agreeable to plan of care and all questions answered. She is also complainin g of left CMC arthritis, and I will ask pain management to inject that basilar thumb as well. Osteoarthr osis of the carpometacarpal joint of the thumb 14492294 M18.9 [id number] [facility] [address] [place] [address] [place] [address] 02/11/2022 12:46:05 02/11/2022 13:26:59 Osteoarthrosis of the carpometacarpal joint of the thumb 64292984 M18.9 Osteoarthr itis of left hip joint 1808519462 17684 M16.12 Pain of le ft hip joint 1782451069 88922 M25.552 [id number] Sno [facility] [address] [place] [address] [place] [address] 02/25/2022 12:45:32 02/25/2022 13:15:07 Osteoarthrosis of the carpometacarpal joint of the thumb 15402574 M18.12 Pain of left wrist 13932 28002 10221 M25.532 [id number] [facility] [address] [place] [address] 09/16/2022 10:22:39 09/16/2022 11:25:17 Osteoarthritis of right hip joint 2563508164 48424 M16.11 Pain of le ft hip joint 1496871408 42754 M25.552 [id number] DAVID Booth [facility] SERVICES[facility] [address] [place] [address] 09/16/2022 11:47:05 09/18/2022 17:55:20 Pain of left knee region [id number] 28325 M25.562 Pes anseri nus tendinitis [id number] M76.892 Assessment : Left knee pes anserine tendinitis . I discussed the results of physical exam and radiologic al imaging. I discussed aggressive icing of her left pes anserine bursa. I discussed stretching techniques . I provided printed exercise focusing on Pez anserine rehabilita tive home exercises. Follow-up in 1 month. Should her symptoms persist, I would consider diagnostic and therapeuti c injection. Tramadol side effects were discussed. 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 (MEDICARE REPLACEMENT/A DVANTAGE - PPO) [id number] Annalee Camarena [id number] Annalee Camarena 02/25/[address] [facility] (MEDICARE REPLACEMENT/A DVANTAGE - PPO) [id number] Annalee Camarena [id number] Annalee Camarena 09/16/[address] [facility] (MEDICARE REPLACEMENT/A DVANTAGE - PPO) [id number] Annalee Camarena [id number] Annalee Camarena 09/16/[address] [facility] (MEDICARE REPLACEMENT/A DVANTAGE - PPO) [id number] Annalee Camarena [id number] Annalee Camarena 02/26/2023 1 [employer] [id number] Annalee Camarena [id number] Annalee Camarena Notes Date Note Type Note Provider Name and Address Organization Details Recorded Time 09/16/2022 text/html Ms. Peterson, an established patient in clinic comes into the orthopedic walk-in day clinic for evaluation of her left knee. Proxy 1 week ago, she struck started having increased anterior left knee pain, worse when rising from a seated position to a standing position. She points to the pes anserine region of her left knee. She ambulates normally with a rolling walker. She has had bilateral knee arthroplasties, her left knee in 2013, her right knee in 2009. DAVID Booth [address] [place], [address], [facility] 09/16/2022 15:28:00 02/26/2023 text/html This is a 77-year-old female states she had many years of active related pain at the base of her left thumb the pain is made worse with gripping and lifting its improved with rest. There is been no injury. Joshua Bonilla MD [address] [place], [address], [facility] 02/26/2023 12:31:16 OBGyn Episode No OBEpisode recorded.
--- OUTSIDE RECORDS SUMMARY | 2024-12-06 13:10 | XMS_ITS | Data Portability ---
Author Organization [facility], [address] Neurology (NM) Address [address] [place] [address] Care Team Providers Care Credit Collections Analyst Name Role Phone JAYSON ELIAS Primary Care Provider [phone] KATHY LOPEZ Pallet Rectifier Assessment Encounter Date Assessment Date Assessment LastModified by Organization Details LastModified Time 10/19/2024 10/19/2024 1. Telogen effluvium with androgenetic component: We discussed the diagnosis. We discussed the fact that this condition is caused by a disruption in the hair growth cycle which is caused by some type of stress to the system. We discussed the fact that this is most likely associated with her recent weight loss on Wegovy. We discussed the fact that there is no treatment for this condition but that it should correct itself over the course of the next 3 to 6 months. I did discuss w/ pt if she continues to have rapid weight loss & remains on wegovy the TE is likely to continue. Discussed as someone ages an increase in hairloss is also common. 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 We discussed OTC supplements including Viviscal and Nutrafol. Pt reports she's taking an OTC biotin twice daily, I advised to not take more than directed. Instructed biotin is not likely to make a significant impact on hairloss. We discussed supplements containing Biotin and their potential to alter lab values. I recommend the Pt hold the supplements for at least a week before having labs drawn. We discussed topical minoxidil. I advised the patient that they could use Extra Strength Rogaine. I advised them that this should be applied twice daily to the affected area. I advised the patient to be careful to apply it only to the affected area as it could cause hair growth in other areas if applied inadvertently. We discussed side effects of this medication including skin irritation. She inquired about a pill for tx. Discussed PO minoxidil. I advised against minoxidil pills because of cardiac risks. 2. Skin care was discussed. I recommend a daily moisturizing cream, Pt is to apply after a shower. We discussed CeraVe, Cetaphil, and Aveeno. 3. Patient reports a hx of luis enrique derm but no active dermatitis noted. Head and shoulders sample given to try. I asked her to return as needed. She will call with any questions or concerns in the meantime. [email or web address] Not available 10/20/2024 10:49:45 11/17/2024 11/17/2024 In summary, this 79-year-old female presenting with atrial fibrillation. Recent concerns have been regarding the initiation of blood thinners as recommended by casino controller Dr. Joana Tubbs due to the recent diagnosis of atrial fibrillation. The patient has a history of meningioma diagnosed initially about ten years ago on an MRI conducted for hearing loss in the left ear, with subsequent slight growth confirmed in a follow-up MRI in 2020. The patient exhibits single-sided deafness and uses a bone-anchored hearing aid device along with a conventional hearing aid, causing some balance issues. Hypertension is managed with medication, and there is no history of diabetes, open heart surgery, or stents, although a physician noted cardiac stiffness likely related to age. Concerns about blood thinners stem from high activity levels outdoors and potential for cuts, compounded by fears of bleeding issues. Medical advice previously was to leave the meningioma untreated, but further evaluation is merited. With that being said, we will order a repeat MRI brain with and without contrast to determine whether the lesion has increased in size and to determine whether further follow up is necessary and whether we should refer her to Radiation Oncology We have no concerns for her starting anticoagulation for her atrial fibrillation in the context of her meningioma. Thank you for allowing us to participate in this patient's care. 1. Atrial Fibrillation: Continue discussion on initiating anticoagulation therapy to prevent thromboembolic strokes, considering benefits versus risks with meningioma presence. Inform patient of strategies to mitigate the bleed risk due to lifestyle. Discuss importance of anticoagulation due to atrial fibrillation-relat ed stroke risks. 2. Meningioma: Due to past discussions indicating a non-surgical approach, recommend acquiring updated imaging to reassess growth status. Consider radiation therapy as a conservative treatment if growth is observed. 3. Single-Sided Deafness: Ensure continued use and functionality of hearing aid and bone-anchored device. Evaluate any further needs arising from device use in balance maintenance. 4. Essential Hypertension: Continue monitoring with current antihypertensive therapy, confirming control of blood pressure. Reassess periodically to ensure ongoing efficacy. Results: - Diagnostic Imaging: MRI conducted prior to 2020 and repeated in 2020, identified a meningioma with checking for growth. Procedure Documentation: - Neurological Examination: Conducted a neurological exam, assessed patient orientation to place, time, and person, along with cranial nerve testing. Patient oriented to [place] and the year 2024, correctly identified full name and current president, followed finger movements with eyes, and performed facial expressions and hearing assessments as guided. Informed consent was implicit in patient participation, with patient agreement noted. Not available 11/17/2024 10:51:17 11/22/2024 11/22/2024 Ms Camarena Is a pleasant 79-year-old G2, P2 who presents today for an annual exam. Health maintenance: No indication for Pap smears based on benign indication for hysterectomy. We discussed importance of breast self-awareness. She had a mammogram in July. She was given an order for mammogram for next year. She is due for colon cancer screening this year and plans to discuss with her primary care doctor and the different methodologies that are available and what may be best for her. Her most recent bone density was in April 2022 which showed normal bone mass but recommended a 2 to 3-year follow-up. Will place this order if she would like to complete follow-up. Otherwise she is doing well. Encouraged her to call with problems or concerns. [email or web address] Not available 12/01/2024 23:43:10 11/29/2024 11/29/2024 In summary, this 79 year old returns for follow up with MRI of the brain at [facility]. She has a history of a meningioma located on the left frontal side of her head, initially imaged in June 2021. Over the course of almost four years, the patient reports experiencing double vision and balance problems. She is currently under the care of an machine design checker for unilateral hearing loss on the affected side. Despite these issues, the meningioma has shown no significant change in size during the four-year follow-up period. The patient recalls that her previous physician advised against any intervention, suggesting that surveillance was sufficient unless there were notable changes. This conservative management is based on the slow-growing nature of the tumor and the absence of new symptoms directly related to the meningioma. I look forward to her next follow up visit in three years with MRI brain with and without contrast. Thank you for allowing us to participate in this patient's care. 1. Meningioma: The patient's left frontal meningioma shows no significant change in size on MRI after nearly four years of surveillance. Given the stability of the meningioma and the absence of new, concerning symptoms specific to the tumor, further observational management is planned. A follow-up MRI is recommended in approximately three years to reassess the tumor. The patient is advised to monitor for any new neurological symptoms. 2. Double Vision: The patient's report of double vision was noted but attributed to existing conditions. No immediate change in management is indicated related to the meningioma. 3. Balance Problem: Ongoing balance issues are being managed in coordination with her machine design checker, with the suspected cause being related to her unilateral hearing loss rather than the meningioma. Continued follow-up with the equity research associate is recommended. 4. Unilateral Hearing Loss: This is a presumed contributing factor to the patient's balance difficulties. Management by the equity research associate is ongoing. Results: - Imaging: A follow-up MRI scan of the left frontal meningioma from four years prior shows no significant change in size. Not available 11/29/2024 17:36:34 Plan of Treatment Reminders Order Date Submit Date Provider Last Modified By Organization Details Last Modified Time Details Appointments [facility] Patient 15.EST 2024 01:00P M Dr. Wilfrid Stacy Not available Not available Not available New Patient Visit 20.NEW 2025 01:00P M Dr. Kathy Lopez Not available Not available Not available Lab None recorded . Referral None recorded . Procedures None recorded . Surgeries None recorded . Imaging MAMMO, screenin g, digital, bilatera l 2024 025 [facility] (Radiology), [address] [facility], [place], [address], 11/22/2024 13:18:41 MRI, brain, w/wo contrast 2024 027 [facility], [address], [place], [address], 11/29/2024 15:51:34 Medication Orders None recorded . Patient TargetsNo targets recorded. Patient InstructionsNo instructions recorded. Reason for Referral None Reported. Results Created Date Observation Date Name Description Value Unit Range Abnormal Flag Note LastModifiedBy Organization Detail LastModifiedTime 07/18/20 24 07/18/2024 MAMMO , scree mega, digit al, bilat eral [address] [address] Teleph one [phone] Name: Annalee Ford [id number] am Date: 2023 Age: 79Phys ician: MD Pratik, Kathy : 1944Ex aminat ion: MAMM BILATE RAL DIGITA L SCREEN ING EXAM: MAMM BILATE RAL DIGITA L SCREEN ING, MAMM SCREEN ING TOMOSY NTHESI S ACCESS ION: [id number], [id number] EXAM DATE: 07/18/20 24 1:45 PM HISTOR Y: Screen ing. COMPAR JAZMIN: Prior studie s dating back to 2018. DENSIT Y: There are scatte red areas of fibrog landul ar densit y. FINDIN GS: 2D digita l compos ite views as well as 3D digita l tomosy nthesi s views were perfor med. There are no suspic ious masses , calcif icatio ns, or areas of josh ectura l distor tion. IMPRES YESENIA: There is no mammog raphic eviden ce of malign ephraim. ASSESS MENT: BI-RAD S 1: Negati ve. RECOMM ENDATI ON: 1. Screen ing Mammog sarahi Bilate ral in 1 year. COMMEN TS: The patien t will be entere d into an automa allan remind er system for a screen ing mammog sarahi in 1 year. The patien t has been or will be contac allan with the result s of this exam. Electr onical ly signed in Fernández cribe by: James Ma MD on:07/18 2:20 PM cc: Page PAGE 1 of [facility] ES 1 [facility] Rad[facility] [address] [place] [address], [address], 07/22/2024 08:22:36 11/29/19 25 11/29/2024 MRI, brain , w/wo contr ast [facility] [address] [place] [address] Teleph one Name: Annalee Ford [id number] Exam Date: 2024 Age: 79 Physic sebastian: Joshua shipley MD, Mary : 1944 Examin ation: MRI BRAIN W AND WO CONTRA ST EXAMIN ATION: MRI brain and chemist intern al audito ry canals with and withou t contra st INDICA TION: histor y of mening ioma, occasi onal headac hes with spots in her vision . Hearin g loss in left ear and balanc e issues / 15ml dotare m RAC TECHNI QUE: MRI evalua tion of the brain perfor med using T1, T2, FLAIR, diffus ion, postco ntrast T1 and GRE/SW I imagin g. Additi onal T2, precon trast T1 and postco ntrast T1 imagin g obtain ed throug h the chemist intern al audito ry canals . 15 ml Dotare m admini stered via the right antecu bital fossa withou t advers e reacti on. COMPAR JAZMIN: 06/10/20 21 MRI brain FINDIN GS: There is no diffus ion restri ction to sugges t acute infarc tion. Mild age-re lated volume loss withou t lobar predom inance . Patchy and partia lly conflu ent T2 hyperi ntensi ties in the white matter , nonspe cific but likely chroni c microa ngiopa thy.Th ere is a left fronta l convex ity mening ioma measur ing 2.1 cm parall el and 0.8 cm perpen dicula r to the calvar ium, stable since previo us. This abuts the underl tia fronta l lobe withou t edema. No other mass lesion is identi fied. No other abnorm al enhanc ement is identi fied. No recent or remote hemorr marcos. There is bilate ral lens replac ement. Parana lacie sinuse s are clear. The major intrac ranial arteri al flow voids are mainta ined. Pituit krish and pineal region s are normal . Cervic al spondy losis. There is left retroa uricul ar artifa ct (BAHA device per review of previo us imagin g histor y). Cerebe llopon shashank angles and chemist intern al audito ry canals are clear. Fluid- filled inner ear struct ures appear normal . There is no abnorm al enhanc ement along the crania l nerve VII/cr anial nerve VIII comple xes. IMPRES YESENIA: 1. No new or acute intrac ranial findin gs 2. No cerebe llopon shashank angle/ chemist intern al audito ry canal lesion 3. Stable left fronta l convex ity mening ioma Electr onical ly signed in Fernández cribe by: GAVIN SUAREZ MD on:11/10 11:03 AM cc: Page PAGE 1 of [facility] 1 [place] [facility] [address] [place] [address], [id number], 11/30/2024 15:46:38 Result Notes None recorded. 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 Active 2023 Mily Hollis [facility] 4 15:31:54 Intracranial meningioma 186984262 Active 2024 Leti morales, [facility] 5 10:51:31 Telogen effluvium 12156562 Active 2023 Mily Hollis null, [facility] 4 15:26:13 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 Procedures Surgical History Date Name Laterality Status Provider Name and Address Organization Details Recorded Time 4 Date of Last Mammogram completed [facility] 11/22/2024 12:14:47 2 Most Recent Bone Density completed [facility] 11/22/2024 12:15:29 Imaging Results Imaging Date Name Status LastModified by Organiz ation Details LastModified Time 07/18/2024 MAMMO, screening, digital, bilateral completed [facility] [address] [place] [address], [id number], 07/22/2024 08:22:36 11/29/2024 MRI, brain, w/wo contrast completed [place] [facility] [address] [place] [address], [id number], 11/30/2024 15:46:38 Procedure Notes None recorded. Medical Equipment None Reported. Allergies No known drug allergies Medications Name Sig Start Date Stop Date Status Note LastModified by Organization Details LastModified Time celecoxib 200 mg capsule 08/11 completed Not Available Not Available Not Available amoxicillin 500 mg capsule TAKE 4 CAPSULES BY MOUTH BEFORE PROCEDURE 08/11 completed Not Available Not Available Not Available clonidine HCl 0.1 mg tablet Take 1 tablet twice a day by oral route. active Not Available Not Available No t Available prednisone 10 mg tablet TAKE 4 TABLETS BY MOUTH DAILY FOR 5 DAYS 11/22 completed Not Available Not Available Not Available gabapentin 600 mg tablet 11/22 completed Not Available Not Available Not Available atorvastati n 10 mg tablet Take 1 tablet every day by oral route. active Not Available Not Available No t Available ofloxacin 0.3 % eye drops INSTILL 1 DROP IN RIGHT EYE FOUR TIMES DAILY 08/11 completed Not Available Not Available Not Available hydrocodone 5 mg-acetamin ophen 325 mg tablet TAKE 1 TABLET BY MOUTH TWICE DAILY NEEDED 11/22 completed Not Available Not Available Not Available tretinoin 0.025 % topical cream APPLY TOPICALLY TO THE AFFECTED AREA DAILY active Not Available Not Available No t Available potassium chloride ER 10 mEq tablet,exte nded release TAKE 1 TABLET BY MOUTH 3 TIMES DAILY active Not Available Not Available No t Available acetaminoph en 300 mg-codeine 30 mg tablet TAKE 1 TABLET BY MOUTH FOUR TIMES DAILY NEEDED FOR PAIN active Not Available Not Available No t Available tramadol 50 mg tablet active Not Available Not Available No t Available amoxicillin 500 mg tablet TAKE 1 TABLET BY MOUTH EVERY 8 HOURS 11/22 completed Not Available Not Available Not Available ketorolac 0.5 % eye drops INSTILL 1 DROP IN RIGHT EYE FOUR TIMES DAILY 08/11 completed Not Available Not Available Not Available famotidine 20 mg tablet Take 1 tablet twice a day by oral route. active Not Available Not Available No t Available prednisolon e acetate 1 % eye drops,suspe nsion SHAKE LIQUID AND INSTILL 1 DROP IN RIGHT EYE FOUR TIMES DAILY 08/11 completed Not Available Not Available Not Available lorazepam 0.5 mg tablet TAKE 1 TABLET BY MOUTH NEEDED FOR ANXIETY active Not Available Not Available No t Available gabapentin 300 mg capsule active Not Available Not Available Not Available hydroxyzine HCl 25 mg tablet TAKE 1 TABLET BY MOUTH THREE TIMES DAILY NEEDED FOR ITCHING active Not Available Not Available No t Available ascorbic acid (vitamin C) 100 mg chewable tablet Take by oral route. active Not Available Not Available No t Available furosemide 20 mg tablet active Not Available Not Available Not Available ergocalcife rol (vitamin D2) 1,250 mcg (50,000 unit) capsule TAKE 1 CAPSULE EVERY OTHER WEEK active Not Available Not Available No t Available albuterol sulfate HFA 90 mcg/actuati on aerosol inhaler INHALE 1 TO 2 PUFFS BY MOUTH EVERY 4 TO 6 HOURS NEEDED DIRECTED active Not Available Not Available No t Available celecoxib 100 mg capsule 08/11 completed Not Available Not Available Not Available clobetasol 0.05 % scalp solution APPLY TWO TIMES A DAY DIRECTED active Not Available Not Available No t Available ipratropium bromide 21 mcg (0.03 %) nasal spray INHALE 2 SPRAYS IN EACH NOSTRIL TWICE DAILY active Not Available Not Available No t Available nystatin powder active Not Available Not Available Not Available celecoxib 400 mg capsule TAKE 1 CAPSULE DAILY active Not Available Not Available No t Available metoprolol tartrate 25 mg tablet active Not Available Not Available No t Available chlorhexidi ne gluconate 0.12 % mouthwash SWISH AND SPIT 1/2 OZ TWICE DAILY FOR 30 SECONDS. AVOID EATING OR DRINKING FOR 30 MINUTES FOLLOWING TREATMENT 08/11 completed Not Available Not Available Not Available biotin active Not Available Not Availa ble Not Available Iron (ferrous sulfate) active Not Available Not Available Not Available Multiple Vitamin, Womens active Not Available Not Available Not Available Lumigan 0.01 % eye drops INSTILL 1 DROP INTO BOTH EYES AT BEDTIME active Not Available Not Available No t Available Wegovy 2.4 mg/0.75 mL subcutaneou s pen injector ADMINISTE R 2.4 MG UNDER THE SKIN EVERY WEEK active Not Available Not Available No t Available Wegovy 1.7 mg/0.75 mL subcutaneou s pen injector INJECT 1.7MG UNDER THE SKIN ONCE WEEKLY 11/22 completed Not Available Not Available Not Available Wegovy 1 mg/0.5 mL subcutaneou s pen injector 11/22 completed Not Available Not Available Not Available Vitals Date Recorded Heart rate Provider Name an d Address Organization Details Last Updated DateTime 08/11/2024 91 /min Dipika Calix [facility] 08/11/2024 10:52:57 Date Recorded Oxygen saturation Oxygen saturation in Arterial blood by Pulse oximetry Provider Name and Address Organization Details Last Updated DateTime 08/11/2024 98 % 98 % Dipika Calix [facility] 08/11/2024 10:53:07 Date Recorded Body height Provider Name an d Address Organization Details Last Updated DateTime 10/19/2024 157.48 cm Lynne Castro [facility] 10/19/2024 14:52:17 Date Recorded Heart rate Provider Name an d Address Organization Details Last Updated DateTime 10/19/2024 92 /min Lynne Castro [facility] 10/19/2024 14:56:48 Date Recorded Oxygen saturation Oxygen saturation in Arterial blood by Pulse oximetry Provider Name and Address Organization Details Last Updated DateTime 10/19/2024 97 % 97 % Lynne Castro [facility] 10/19/2024 14:56:51 Date Recorded Body height Provider Name an d Address Organization Details Last Updated DateTime 11/17/2024 157.48 cm Lorenza Howard [facility] 11/17/2024 10:26:49 Date Recorded Body mass index (BMI) Body weight Provider Name and Address Organization Details Last Updated DateTime 11/17/2024 46.7 kg/m2 853349.49 g [facility] 11/17/2024 10:26:56 Date Recorded Heart rate Provider Name an d Address Organization Details Last Updated DateTime 11/17/2024 89 /min [facility] 11/17/2024 10:27:09 Date Recorded Oxygen saturation Oxygen saturation in Arterial blood by Pulse oximetry Provider Name and Address Organization Details Last Updated DateTime 11/17/2024 96 % 96 % oLrenza Howard [facility] 11/17/2024 10:27:14 Date Recorded Body height Provider Name an d Address Organization Details Last Updated DateTime 11/22/2024 156.[facility]/22/2024 12:09:49 Date Recorded Body mass index (BMI) Body weight Provider Name and Address Organization Details Last Updated DateTime 11/22/2024 46.9 kg/m2 855803.71 g [facility] 11/22/2024 12:09:55 Date Recorded Body height Provider Name an d Address Organization Details Last Updated DateTime 11/29/2024 156.21 cm Danielle Scott [facility] D [facility] 11/29/2024 12:33:25 Date Recorded Body mass index (BMI) Body weight Provider Name and Address Organization Details Last Updated DateTime 11/29/2024 45.5 kg/m2 725588.13 g Danielle Scott [facility] IELD [facility] 11/29/2024 12:33:30 Date Recorded Heart rate Provider Name an d Address Organization Details Last Updated DateTime 11/29/2024 51 /min Danielle Scott [facility] D [facility] 11/29/2024 12:33:37 Date Recorded Oxygen saturation Oxygen saturation in Arterial blood by Pulse oximetry Provider Name and Address Organization Details Last Updated DateTime 11/29/2024 99 % 99 % Danielle Scott [facility] 11/29/2024 12:33:40 Date Recorded Systolic blood pressure Diastolic blood pressure Provider Name and Address Organization Details Last Updated DateTime 08/11/2024 130 mm[Hg] 80 mm[Hg] Dipika Calix [facility] 08/11/2024 10:52:52 Date Recorded Systolic blood pressure Diastolic blood pressure Provider Name and Address Organization Details Last Updated DateTime 11/17/2024 118 mm[Hg] 88 mm[Hg] Lorenza Howard [facility] 11/17/2024 10:27:02 Date Recorded Systolic blood pressure Diastolic blood pressure Provider Name and Address Organization Details Last Updated DateTime 11/22/2024 130 mm[Hg] 78 mm[Hg] Sotero Mullen [facility] 11/22/2024 12:09:59 Date Recorded Systolic blood pressure Diastolic blood pressure Provider Name and Address Organization Details Last Updated DateTime 11/29/2024 122 mm[Hg] 84 mm[Hg] Danielle Scott [facility] 11/29/2024 12:33:33 Social History Question Answer Notes LastModified by Organizat ion Details LastModified Time Tobacco Smoking Status Never Smoker Dipika Calix [facility] 08/11/2024 10:53:16 What Is Your Level Of Alcohol Consumption? Occasional Information not available 11/22/2024 How Many Times Per Week Do You Consume Alcohol? Less Than 1 Time Per Week Information not available 11/22/2024 What Is Your Level Of Caffeine Consumption? None Information not available 11/22/2024 How Many Children Do You Have? 2 Information not available 11/22/2024 Are You Sexually Active? No Information not available 11/22/2024 Do You Use Any Illicit Or Recreational Drugs? No Information not available 11/22/2024 Sex: Unknown Functional Status Question Answer Note LastModified by Organizat ion Details LastModified Time What is your exercise level? Occasional Information not available 11/22/2024 Mental Status None recorded. Family History Nothing Reported. Medical History Condition Response Diabetes N Anxiety Disorder N Bleeding Disorder N Attention-deficit Hyperactivity Disorder N High Blood Pressure Y Arthritis Y Hyperlipidemia N Cancer N Stroke N Thyroid Problems N Asthma N Depression N COPD N Anemia N Seizures N Heart Disease Y Fibromyalgia N Osteoporosis N Kidney Disease N Gynecological History Statement/Question Response Abnormal Pap N If Post Menopausal, Age at Menopause 50 Date of Last Mammogram 07/18/2024 Most Recent Bone Density 05/09/2022 Sexually Active? N Menses Monthly N HPV Vaccine N Date of Last Pap Smear Age at Menarche 13 Current Control Method Hysterectom y Obstetrics History GPAL:G 2 P 0 0 0 2 Type Value Living 2 Total 2 Immunizations Vaccine Type Date Status Note Provider Nam e and Address Organization Details Recorded Time Influenza, split virus, quadrivalent, preservative 3 completed Sotero Mullen [facility] 11/22/2024 12:10:03 Influenza, split virus, quadrivalent, preservative 0 completed Sharoni Paz [facility] 11/22/2024 12:10:03 Influenza, split virus, quadrivalent, preservative 9 completed Sotero Mullen [facility] 11/22/2024 12:10:03 Influenza, split virus, quadrivalent, preservative 2 completed Sotero Mullen [facility] 11/22/2024 12:10:03 Influenza, split virus, quadrivalent, preservative 8 completed Zoi Dunse [facility] 11/22/2024 12:10:03 zoster recombinant 9 completed Zoi Dunse [facility] 11/22/2024 12:10:03 zoster recombinant 9 completed Zoi [facility] 11/22/2024 12:10:03 COVID-19, mRNA, LNP-S, PF, 30 mcg/0.3 mL dose 1 completed Zoi [facility] 11/22/2024 12:10:03 COVID-19, mRNA, LNP-S, PF, 30 mcg/0.3 mL dose 1 completed Zoi [facility] 11/22/2024 12:10:03 COVID-19, mRNA, LNP-S, PF, 30 mcg/0.3 mL dose 1 completed Zoi [facility] 11/22/2024 12:10:03 RSV, recombinant, protein subunit RSVpreF, adjuvant reconstituted, 0.5 mL, PF 3 completed Zoi [facility] 11/22/2024 12:10:03 COVID-19, mRNA, LNP-S, PF, beba-sucrose, 30 mcg/0.3 mL 3 completed Zoi [facility] 11/22/2024 12:10:03 pneumococcal polysaccharide PPV23 5 completed Zoi [facility] 11/22/2024 12:10:03 Tdap 0 completed Zoi [facility] 11/22/2024 12:10:03 Tdap 2 completed Zoi [facility] 11/22/2024 12:10:03 Influenza, split virus, trivalent, preservative 4 completed Zoi [facility] 11/22/2024 12:10:03 Influenza, split virus, trivalent, preservative 1 completed i [facility] 11/22/2024 12:10:03 Td (adult), 2 Lf tetanus toxoid, preservative free, adsorbed 3 completed [facility] 11/22/2024 12:10:03 Hep A, adult 0 completed [facility] 11/22/2024 12:10:03 Hep A, adult 0 completed [facility] 11/22/2024 12:10:03 Influenza, split virus, quadrivalent, PF 5 completed [facility] 11/22/2024 12:10:03 Past Encounters Encounter ID Performer Location Encounter Start Date Encounter Closed Date Diagnosis/Indication Diagnosis SNOMED-CT Code Diagnosis ICD10 Code Diagnosis Note [id number] MD [facility] ([place]) [address] [facility] [place] [address] 04/26/2024 09:56:48 04/26/2024 11:09:51 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 Obstructiv e sleep apnea syndrome 16936870 G47.33 Obstructiv e sleep apnea with good CPAP adherence encouraged patient to continue with nightly use. Will have patient return to office in 1 year. [id number] MD [facility] ([place]) [address] [facility] [place] [address] 10/19/2024 14:39:27 10/19/2024 15:34:41 Telogen effluvium 45216558 L65.0 Asteatosis cutis 2828298 0 L85.3 [id number] Mary tamez MD [address] [facility] ([place]) [address] [place] [address] 11/17/2024 10:04:48 11/17/2024 13:38:42 Intracranial meningioma 414344903 D32.0 [id number] Kathy Lopez MD [facility] festus [facility]) [address] [place] [address] 11/22/2024 11:12:47 11/22/2024 13:01:13 Breast neoplasm screening status 665975134 Z12.31 Gynecologi c examination 92266924 Z01.419 [id number] Mary tamez MD [address] [address] ([place]) [address] [place] [address] 11/29/2024 12:18:43 11/29/2024 17:30:32 Intracranial meningioma 258482975 D32.0 Health Concerns Section Related Observation LastModified by Organization Detai ls LastModified Time None Recorded Concern Status LastModified by Organization Details LastModified Time None Recorded Advance Directives Directive None Recorded Payers Encounter Date Sequence Insurance Name Policy Number Policy Velez Covered Member ID Velez Member ID Guarantor Name 08/11/2024 1 [employer] (MEDICARE REPLACEMENT PPO) [id number] 1 Annalee Camarena [id number] Annalee Camarena 10/19/2024 1 [employer] (MEDICARE REPLACEMENT PPO) [id number] 1 Annalee Camarena [id number] Annalee Camarena 11/17/2024 1 [employer] (MEDICARE REPLACEMENT PPO) [id number] 1 Annalee Camarena [id number] Annalee Camarena 11/22/2024 1 [employer] (MEDICARE REPLACEMENT PPO) [id number] 1 Annalee Camarena [id number] Annalee Camarena 11/29/2024 1 [employer] - [employer] [place] (MEDICARE REPLACEMENT/AD VANTAGE - PPO) [id number] 1 Annalee Camarena [id number] Annalee Camarena Notes Date Note Type Note Provider Name and Address Organization Details Recorded Time 08/11/2024 text/html CPAP F/UReported bypatient.Associated Symptoms:mask does not leak; no insomnia; no problems with sleep maintenance; no dry mouth; no snoring through the mask; no aerophagia; no abdominal discomfort; no skin irritation; no ear pain; no ear pressure; no nasal congestion; no headache; no memory loss Patient is a 79-year-old female with a history of moderately severe obstructive sleep apnea with an AHI of 16 events per hour sleep returns office for 1 year follow-up. Martita Ayala PA-C [facility], [address], [facility] 08/11/2024 11:06:28 10/19/2024 text/html {{EPV* NPV - Ref er to Dermatology Patient History form in the HER that has been reviewed and signed. Please refer to this form for Past Medical History, Family History, and additional Social History.}} Date last seen: 04/26/24 Patient prefers to be called: Annalee Lindsay is accompanied by: Patient presents today for recheck of alopecia. 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 {{Date: No*}} Progress since last visit: {{improved Stable-no progression Condition seems to be progressing*}} Major change in health status since last visit: {{Yes- No*}} History of Present Illness documented by nursing staff, verified and amended as necessary by the attending provider who electronically signs this note. Harriet Chamberlain MD [address] [place] [address], [phone], [facility] 10/20/2024 10:50:05 11/17/2024 text/html Ms. Camarena is a 79 year old female who is a patient of Dr. Elias is referred by Dr. Galarza for history of meningioma. The patient states that she has been aware of the meningioma for a years now. The patient denies pain today. The patient denies any injuries within her head. She states that she has no weakness, numbness, or tingling in her extremities but does have neuropathy in her feet. The patient had a recent fall about a month ago and [place] is follow up with her for a lumbar MRI. She states she has always had balance issues due to having problems with her inner ears. The patient states she takes tylenol for her occasional headaches. Pt states she has occasional spots in her vision. The patient states she had a lumbar spine decompression about a month ago at [facility]. The patient denies any physical therapy, Chiropractics, and EMG testing. The patient states that she has had a recent injection in her lumbar spine. The patient also states that she had concerns for her casino controller putting her on blood thinners for a recent diagnoses of A-fib. An MRI of the brain with and without contrast was performed at [facility] on 06/10/2021. The impression is as follows:1. No acute intracranial findings. 2. Normal appearance of the internal auditory canals, cochlea and semicircular canals 3. Slight increase in size of the meningioma along the left frontal convexity when compared with the prior MRI brain examination from 07/24/2011. The patient is a 79-year-old female presenting with atrial fibrillation. Recent concerns have been regarding the initiation of blood thinners as recommended by casino controller Dr. Angelita Danielson due to the recent diagnosis of atrial fibrillation. The patient has a history of meningioma diagnosed initially about ten years ago on an MRI conducted for hearing loss in the left ear, with subsequent slight growth confirmed in a follow-up MRI in 2020. The patient exhibits single-sided deafness and uses a bone-anchored hearing aid device along with a conventional hearing aid, causing some balance issues. Hypertension is managed with medication, and there is no history of diabetes, open heart surgery, or stents, although a physician noted cardiac stiffness likely related to age. Concerns about blood thinners stem from high activity levels outdoors and potential for cuts, compounded by fears of bleeding issues. Medical advice previously was to leave the meningioma untreated, but further evaluation is merited. Mary Russo i, MD [address] [place] [address], [phone], [facility] 11/18/2024 15:32:18 11/22/2024 text/html Ms Camarena is a pleasant 79 year old G2, P2 who presents today for an annual exam. She is overall doing well. She is postmenopausal. She denies any vaginal bleeding. She denies vaginal pressure, prolapse or bulge. She denies any vasomotor symptoms. She denies any vaginal dryness, discharge, itching or burning. She denies any problems with voiding or bowel movements. She is not currently sexually active. She has previously met criteria to discontinue cervical cancer screening based on her benign hysterectomy. She had a mammogram last in July 2024. She is not previously hepatitis C screening. She is reports she is due for a colon cancer screening this year. She plans to discuss with her primary care doctor on colonoscopy versus alternative screening. She had a normal bone density in 2021. She was recommended to have a 2 to 3-year follow-up. Social history: Annalee is a non-smoker. She drinks alcohol occasionally. She denies recreational drug use. She denies caffeine consumption. She exercises occasionally. She always wears her seatbelt. She took several trips with her sisters and went to [place]. She also traveled to [place] in [place] this year. Kathy Lopez MD [address] [facility], [place], [address], [facility] 12/05/2024 07:57:37 11/29/2024 text/html HPI:Ms. Camarena is a 79 year old female who is a patient of Dr. Elias returns for follow up with MRI brain performed at [facility] prior to the visit. The patient is ambulating with a wheeled walker. 11/17/24: TA recommended MRI brain for left frontal convexity meningioma 11/29/24: LAS double vision, balance issues Past Medical/Surgical History:hypertension, ERNST, atrial fibrillation Conservative Treatment: Pertin ent [place]MRI brain at [place] on 11/29/24IMPRESSION: 1. No new or acute intracranial findings 2. No cerebellopontine angle/internal auditory canal lesion 3. Stable left frontal convexity meningioma The patient is a 79-year-old female presenting for follow-up imaging of her meningioma. She has a history of a meningioma located on the left frontal side of her head, initially imaged in June 2021. Over the course of almost four years, the patient reports experiencing double vision and balance problems. She is currently under the care of an machine design checker for unilateral hearing loss on the affected side. Despite these issues, the meningioma has shown no significant change in size during the four-year follow-up period. The patient recalls that her previous physician advised against any intervention, suggesting that surveillance was sufficient unless there were notable changes. This conservative management is based on the slow-growing nature of the tumor and the absence of new symptoms directly related to the meningioma. Mary Russo i, MD [address] [place] [address], [phone], [place] [facility] 11/30/2024 19:05:43 OBGyn Episode No OBEpisode recorded.
--- OUTSIDE RECORDS SUMMARY | 2024-12-06 13:10 | XMS_ITS | Continuity of Care Document ---
Author Organization [facility] Address [address] [facility] [address] [place] [address] Insurance Providers Payer Plan Claims Address Claims Phone Policy Number Group Number Relation Employer Guarantor Name Guarantor Guarantor Address Guarantor Phone [employer] [address], [place] [address] tel:[phone] Self Annalee Camarena [id number], [place] [address] [employer] [address], [place] [address] tel:[phone] Self Annalee Camarena 1945 [address], [place] [address] [employer] [address], [place] [address] tel:[phone] Self Annalee Camarena [address], [place] [address] Problems Condition ICD9 code ICD10 code SNOMED code Start Date End Date S tatus Meniere's disease, unspecified ear H81.09 Working Sacroiliitis, not elsewhere classified M46.1 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
== END 2024-12-06 12:35 | disposition home or self-care (01) ==
LOC: CHSIMG 12:38
PROVIDERS: PCP Family Medicine
DX: Z78.0 Asymptomatic menopausal state (principal)
CPT/HCPCS: 77080

== ENCOUNTER 2025-07-25 13:34 | Outpatient (CLI) | payer MEDICARE, SELFPAY ==
[2025-07-25 14:24] LABS: Iron 180 ug/dL (37-170)
[2025-07-25 14:34] LABS: Percent Iron Saturation 72 % (20-50)
--- OUTSIDE RECORDS SUMMARY | 2025-07-25 15:17 | XMS_ITS | Clinical Summary ---
Author Organization [facility] Address [address] [place] [address] Care Team Providers Care Treasury Assistant Name Role Phone Rodrigo Farrar MD Primary Care Provider Allergies No known active allergies Medications albuterol HFA (PROVENTIL HFA,VENTOLIN HFA,PROAIR HFA) 90 mcg/actuation inhaler Inhale 1 puff every 4 (four) hours as needed Active atorvastatin (LIPITOR) 10 mg tablet daily 3 Active biotin 1 mg capsule Take 1 tablet by mouth daily Active clobetasoL (TEMOVATE) 0.05 % external solution Apply 1 Application topically daily as needed Active furosemide (LASIX) 20 mg tablet daily 3 Active bimatoprost (Lumigan) 0.01 % ophthalmic drops 1 Active lutein 20 mg capsule daily Active nystatin powder Apply 1 Application topically daily as needed Active potassium chloride ER 10 mEq CR tablet Take 3 tablets every day by oral route as directed. Active vitamin E 100 unit capsule Take 1 capsule (100 Units total) by mouth daily Active ergocalciferol (VITAMIN D) 50,000 unit capsule every 14 (fourteen) days 3 Active tretinoin (RETIN-A) 0.025 % cream Apply 1 Application topically 2 (two) times a week 0 Active mv-mn/om3/dha/e pa/fish/lut/ana (OCUVITE ADULT 50 PLUS ORAL) Take by mouth daily Active fani.stockin g,thigh,reg,med misc Jobst Elvarex Compression stocking 20-0 mhg 07/19/202 2 Active hydrOXYzine (ATARAX) 25 mg tablet TAKE 1 TABLET BY MOUTH THREE TIMES DAILY NEEDED FOR ITCHING 3 Active cloNIDine (CATAPRES) 0.1 mg tablet Takes as needed 3 Active ipratropium (ATROVENT) 21 mcg (0.03 %) nasal spray USE 2 SPRAYS IN EACH NOSTRIL TWICE DAILY DIRECTED 3 Active metoprolol tartrate (LOPRESSOR) 25 mg immediate release tablet 1 tablet 2 times aday 3 Active gabapentin (NEURONTIN) 300 mg capsule 1 capsule (300 mg total) 1 capsule 2 times a day 4 Active Wegovy 2.4 mg/0.75 mL auto-injector 2.4 mg every 7 days 4 Active LORazepam (ATIVAN) 0.5 mg tablet TAKE 1 TABLET BY MOUTH NEEDED FOR ANXIETY Active famotidine (PEPCID) 20 mg tablet OTC 20mg BID Active ascorbic acid, vitamin C, (ascorbic acid) 250 mg tablet,chewable Take by mouth daily Active mv,calcium,min/ iron/folic/vitK (MULTI FOR HER ORAL) OTC daily Active apixaban (ELIQUIS) 5 mg tablet Take 1 tablet (5 mg total) by mouth 2 (two) times a day 5 Active nystatin, bulk, 1 billion unit powder Active multivit with calcium,iron,mi n (MULTIPLE VITAMIN, WOMENS ORAL) Active DOCOSAHEXAENOIC ACID ORAL Take 1 tablet by mouth daily Active calcium carbonate-vitam in D3 1,500 mg (600 mg elemental)-200 unit capsule Take 1 tablet by mouth daily 1 Active ferrous sulfate (Iron, ferrous sulfate,) 325 mg (65 mg of elemental iron) tablet Active acetaminophen 32 mg/mL 60.9 mL (1,950 mg total) At least 2 times a day Active Active Problems Problem Noted Date Diagnosed Date Chronic use of opiate drug for therapeutic purpo se 04/18/2024 Lumbar radiculopathy 02/12/2024 Chronic bilateral low back pain without sciatica 12/30/2023 Cluneal neuropathy 11/16/2023 Spondylosis of lumbar region without myelopathy or radiculopathy 09/23/2023 Spinal stenosis of lumbar re gion with neurogenic claudication 06/03/2023 Sacroiliitis 06/03/2023 Encounters Date Type Department Care Team Description 06/09/2025 Telephone [facility] [address] [place] [address] for Advanced Medicine [address] [place] [phone] Felicity Mcghee MD spk w/nurse; Med Management 06/07/2025 Telephone [facility] [address] [place] [address] Advanced Medicine [address] [place] [phone] Felicity Mcghee MD spk w/nurse 05/30/2025 1:58 PM CDT - 05/30/2025 11:59 PM CDT Hospital Encounter [facility] [address] [place] [address] Advanced Medicine [address] [place] [phone] Aditya Tellez NP Spondylosis of lumbar region without myelopathy or radiculopathy (Primary Dx); Vertebrogenic low back pain Discharge Disposition: Discharge to home or self care 05/10/2025 Telephone [facility] [address] [place] [address] Advanced Medicine [address] [place] [phone] Felicity Mcghee MD Med Refill; Scheduling Appointments 04/25/2025 Telephone [facility] [address] [place] [address] Advanced Medicine [address] [place] [phone] Felicity Mcghee MD Med Management (Patient received a my chart message stating her tramadol was denied and now she would like a script for Tylenol #3) from Last 3 Months Surgical History Surgery Date Site/Laterality Comments HIP SURGERY TOTAL KNEE ARTHROPLASTY FLUORO GUIDED ASPIRATION TMJ LEFT 08/23/2024 Left HYSTERECTOMY 11/09/2009 - 11/08/2010 Medical History Medical History Date Comments SOB (shortness of breath) Glaucoma Hearing difficulty Lymphedema Arthritis Muscle pain Skin cancer Itching Osteoarthritis Low back pain Atrial fibrillation (HCC) Hemangioma Abnormal ECG Family History Medical History Relation Name Comments Diabetes Brother Heart disease Brother Hypertension Brother Diabetes Father Pneumonia Father Heart disease Mother Hypertension Mother Urinary tract infection Mother Diabetes Paternal Grandmother Relation Name Status Comments Brother Father Mother Paternal Grandmother Social History Tobacco Use Types Packs/Day Years Used Date Smoking Tobacco: Never Smokeless Tobacco: Never Tobacco Cessation:Counseling Given: Not Answered AUDIT-C Answer Date Recorded Q1: How often do you have a drink containing alc ohol? Never 05/30/2025 Q2: How many drinks containi ng alcohol do you have on a typical day when you are drinking? 3 or 4 05/30/2025 Q3: How often do you have six or more drinks on one occasion? Never 05/30/2025 Hunger Vital Sign Answer Date Recorded Within the past 12 months, y ou worried that your food would run out before you got the money to buy more. Never true 02/11/20 24 Within the past 12 months, t he food you bought just didn't last and you didn't have money to get more. Never true 02/11/2024 Comments No Sex and Gender Information Value Date Recorded Sex Assigned at Not on file Legal Sex Female 5:51 PM CDT Gender Identity Not on file Sexual Orientation Not on file Obstetrics History Last Filed Vital Signs Vital Sign Reading Time Taken Comments Blood Pressure 127/74 05/30/2025 2:16 PM CDT Pulse 95 05/30/2025 2:16 PM CDT Temperature 36.3 C (97.3 F) 05/30/2025 2:16 PM CDT Respiratory Rate 16 05/30/2025 2:16 PM CDT Oxygen Saturation 95% 05/30/2025 2:16 PM CDT Inhaled Oxygen Concentration - - Weight 108.9 kg (240 lb) 05/30/2025 2:16 PM CDT Height 157.5 cm (5' 2) 05/30/2025 2:16 PM CDT Body Mass Index 43.9 05/30/2025 2:16 PM CDT Plan of Treatment Health Maintenance Due Date Last Done Comments Depression Screening 1945 Fall Risk Assessment 1945 Hepatitis B Screening 1963 Well Visit 65+ 2010 Osteoporosis Screening-Bone Density Scan 05/25/2025 05/25/2023 Covid-19 Vaccine (4 - 2024-2 6 season) 2025 08/02/2021, 12/05/2020, 11/14/2020 Influenza Vaccine (#1) 2025 3, 08/08/2022, 08/02/2021, Additional history exists DTaP/Tdap/Td Vaccine (3 - Td or Tdap) 04/24/2030 04/24/2020, 08/02/2012, 02/06/1993 Pneumococcal vaccine 65+ Completed 10/12/2015, 1011/2014 Zoster Vaccine Completed 08/04/2019, 06/02/2019 Goals Goal Patient Goal Type Associated Problems Recent Progress Patient-Stated? Author CCM Chronic Pain Care Plan Chronic Care Management Improving( 8:55 AM IT SERVICE TECHNICIAN) Ray Palm RN Note: Problem: Chronic Pain Goals: 1. Minimize further functional decline 2. Maximize quality of life 3. Control pain Strategies: - Activity/exercise program recommendation - Conservative stepwise pain medicine strategy with multi-disciplinary approach - Recommend healthy lifestyle strategies and compensatory methods as needed Medical Devices Implanted Type Area Certified Medical Technician Assistant Device Identifier Shelf Expiration Date Model / Serial / Lot Bone Anchored Hearing Aid-[employer] ([employer]) Other - see comments Ear [employer] CONNECT / / Knee Replacement Knee Insurance T MEDICARE AET MEDICARE Care Teams Treasury Assistant Relationship Specialty Start Date End Date Rodrigo Farrar MD PCP - General Family Medicine 05/29/23
--- OUTSIDE RECORDS SUMMARY | 2025-07-25 15:17 | XMS_ITS | Continuity of Care Document ---
Author Organization [facility] Main Address [address] [place] [address] Insurance Providers Payer Plan Claims Address Claims Phone Policy Number Group Number Relation Employer Guarantor Name Guarantor Guarantor Address Guarantor Phone [employer] [address], [place] [address] tel:[phone] Self Annalee Camarena [address], [place] [address] [employer] [address], [place] [address] tel:[phone] Self Annalee Camarena [address], [place] [address] [employer] [address], [place] [address] tel:[phone] Self Annalee Camarena [address], [place] [address] Problems Condition ICD9 code ICD10 code SNOMED code Start Date End Date S tatus Meniere's disease, 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
[2025-07-25 15:32] LABS: Vitamin B12 > 1000.0 pg/mL (239-931)
[2025-08-02 23:07] LABS: Vit. B1, Whole Blood 259.0 nmol/L (66.5-200.0)
== END 2025-07-25 13:35 | disposition home or self-care (01) ==
LOC: CHSLAB 13:36
PROVIDERS: PCP Family Medicine; Visit Provider Family Medicine
DX: K13.70 Unspecified lesions of oral mucosa (principal); D64.9 Anemia, unspecified; K90.9 Intestinal malabsorption, unspecified; Z79.899 Other long term (current) drug therapy
CPT/HCPCS: 36415; 82607; 82746; 83540; 83550; 84207; 84425; 84630